=== PATIENT | female | born 1945 | race Asian ===

== ENCOUNTER → 2016-09-29 | Outpatient (CLI) | payer MEDICARE, MEDICAID ==
[~2016-09-29] MED LIST: ACET325 PO; ALBU1AER INH; ATOR80TA PO; DABI150 PO; FURO20TA PO; GLUCTAB PO; LISI5 PO; METO50TA OR; MOBI15TA PO; PERC7.5T13 PO; POTA10IN2 PO; XARE20TA PO; ZOFR4TAB3 SL
[2016-09-29 08:59] LABS: HEMATOCRIT 40.1 % (35.0-46.0); MEAN CELL VOLUME 82.5 FL (80.0-100.0); MEAN CORPUSCULAR HEMOGLOBIN 26.3 PG (27.0-34.0); MEAN CORPUSCULAR HGB CONC 31.9 % (32.0-36.0); PLATELET COUNT 180 TH/MM3 (150-450); RED BLOOD COUNT 4.86 MIL/MM3 (4.00-5.30); RED CELL DISTRIBUTION WIDTH 14.7 % (11.6-17.2); REVIEW FLAG FINAL; WHITE BLOOD COUNT 4.7 TH/MM3 (4.0-11.0)
[2016-09-29 09:31] LABS: ALKALINE PHOSPHATASE 77 U/L (45-117); ALT (GPT) 60 U/L (10-53); ANION GAP 7 MEQ/L (5-15); AST (GOT) 41 U/L (15-37); BICARBONATE 30.1 MEQ/L (21.0-32.0); BLOOD UREA NITROGEN 12 MG/DL (7-18); CHLORIDE 106 MEQ/L (98-107); GLOMERULAR FILTRATION RATE 58 ML/MIN (>89); GLUCOSE,FASTING 101 MG/DL (74-99); POTASSIUM 4.3 MEQ/L (3.5-5.1); SODIUM (NA) 143 MEQ/L (136-145); TOTAL BILIRUBIN ADULT 0.8 MG/DL (0.2-1.0)
== END ==
LOC: CLAB 08:14
DX: R05 Cough (principal); R06.09 Other forms of dyspnea; R06.2 Wheezing; I50.9 Heart failure, unspecified
CPT/HCPCS: 36415; 80053; 85027

== ENCOUNTER 2016-10-05 03:26 | Emergency (ER) | payer MEDICARE, MEDICAID ==
[~2016-10-05] VITALS: Ht 170.2 cm; Wt 110.0 kg
[~2016-10-05 03:26] MED LIST changes: -MOBI15TA PO; -PERC7.5T13 PO; -XARE20TA PO; -ZOFR4TAB3 SL
[2016-10-05] MEDS ORDERED: SODIUM CHLORIDE 0.9% FLUSH 5 ML FLUSH IVF PRN (03:45)
[2016-10-05] MEDS ORDERED: HYDROmorphone HCL PF 1 MG/ML VIAL IVS ONE (03:45)
[2016-10-05] MEDS ORDERED: ONDANSETRON HCL 4 MG/2 ML VIAL IVP ONE (03:45)
[2016-10-05 03:46] VITALS: BP 162/77; PULSE 80; RESP 20; TEMP 97.6; O2SAT 98
--- NOTE | 2016-10-05 03:52 | PD ---
HPI Chief Complaint: Musculoskeletal Complaint Time Seen by Provider: 03:43 Travel History International Travel<30 days: No Contact w/Intl Traveler<30days: No History of Present Illness HPI The patient is 71 years old. She arrives by EMS. About 10 hours prior to ER arrival she dropped a extra-large heavy coffee mug onto her left knee. Since then there has been increasing left knee pain constant and severe. Any palpation worsens the pain. The daughter called EMS and brought the patient here. The patient speaks Mandarin Mauritian only and translation was provided by the daughter. Translation services were offered however patient declined. She takes Pradaxa for atrial fibrillation. PFSH Past Medical History Hx Anticoagulant Therapy: Yes Arthritis: No Asthma: No Atrial Fibrillation: Yes Autoimmune Disease: No Blood Disorders: No Anxiety: No Depression: No Heart Rhythm Problems: Yes (A FIB) Cancer: No Cardiovascular Problems: Yes High Cholesterol: No Chemotherapy: No Chest Pain: Yes Congestive Heart Failure: Yes COPD: No Cerebrovascular Accident: Yes Diabetes: Yes Diminished Hearing: No Endocrine: No GERD: No Glaucoma: No Genitourinary: No Hepatitis: No Hiatal Hernia: No Hypertension: Yes Immune Disorder: No Kidney Stones: No Musculoskeletal: No Neurologic: No Psychiatric: No Reproductive: No Respiratory: Yes Immunizations Current: Yes Migraines: No Myocardial Infarction: No Radiation Therapy: No Renal Failure: No Seizures: No Sickle Cell Disease: No Sleep Apnea: No Thyroid Disease: No Ulcer: No Menopausal: Yes Past Surgical History Abdominal Surgery: No AICD: No Appendectomy: No Arteriovenous Shunt: No Cardiac Surgery: Yes (Mitral Valve) Cholecystectomy: No Ear Surgery: No Endocrine Surgery: No Eye Surgery: Yes (CATRACT ) Genitourinary Surgery: No Gynecologic Surgery: No Hysterectomy: No Insulin Pump: No Joint Replacement: No Oral Surgery: No Pacemaker: No Thoracic Surgery: No Valve Replacement: Yes (mvp in 09/19/2009) Other Surgery: Yes Social History Alcohol Use: No Tobacco Use: No Substance Use: No Allergies-Medications (Allergen,Severity, Reaction): Coded Allergies: No Known Allergies (Verified , 04/18/15) Reported Meds & Prescriptions Reported Meds & Active Scripts Active Tylenol (Acetaminophen) 325 Mg Tab 650 Mg PO Q8HR has at home, over the counter Reported Xarelto (Rivaroxaban) 20 Mg Tab 20 Mg PO DAILY Mobic (Meloxicam) 15 Mg Tab 15 Mg PO DAILY Proair Hfa (Albuterol Sulfate) 8.5 Gm Aero 2 Puff INH Q4H PRN * SHAKE WELL BEFORE USE * Potassium Chloride 10 Meq Cap 1 Cap PO DAILY Atorvastatin 80 mg (Atorvastatin Calcium) 80 Mg Tab 80 Mg PO DAILY Metoprolol Tartrate 50 mg (Metoprolol Tartrate) 50 Mg Tab 50 Mg OR BID Prinivil 5 mg (Lisinopril) 5 Mg Tab 5 Mg PO BID Glucophage XR 24 HR (Metformin HCl) 500 Mg Tab 500 Mg PO BID Review of Systems Except as stated in HPI: all other systems reviewed are Neg General / Constitutional: No: Fever Physical Exam Narrative GENERAL: 71-year-old female mild distress well-nourished well-developed SKIN: Warm and dry. HEAD: Atraumatic. Normocephalic. EYES: Pupils equal and round. No scleral icterus. No injection or drainage. ENT: No nasal bleeding or discharge. Mucous membranes pink and moist. NECK: Trachea midline. No JVD. CARDIOVASCULAR: Regular rate and rhythm. No murmur appreciated. RESPIRATORY: No accessory muscle use. Clear to auscultation. Breath sounds equal bilaterally. GASTROINTESTINAL: Abdomen soft, non-tender, nondistended. Hepatic and splenic margins not palpable. MUSCULOSKELETAL: Tenderness and swelling about the left knee. Exam somewhat limited initially due to pain. Distal pulses intact. NEUROLOGICAL: Awake and alert. No obvious cranial nerve deficits. Motor grossly within normal limits. Normal speech. PSYCHIATRIC: Appropriate mood and affect; insight and judgment normal. Data Data Last Documented VS Vital Signs Date Time Temp Pulse Resp B/P Pulse Ox O2 Delivery O2 Flow Rate FiO2 10/05/16 03:46 97.6 80 20 162/77 98 Orders Iv Access Insert/Monitor (10/05/16 03:43) Oximetry (10/05/16 03:43) Ecg Monitoring (10/05/16 03:43) Ondansetron Inj (Zofran Inj) (10/05/16 03:45) Sodium Chloride 0.9% Flush (Ns Flush) (10/05/16 03:45) Hydromorphone Pf Inj (Dilaudid Pf Inj) (10/05/16 03:45) Knee, Complete (4vws) (10/05/16 ) [facility] Medical Decision Making Medical Screen Exam Complete: Yes Emergency Medical Condition: Yes Differential Diagnosis Hemarthrosis, patella fracture, femur fracture, tibial plateau fracture Narrative Course Knee x-ray reveals no fracture, suprapatellar joint effusion is present There is no ballottement on exam and hemarthrosis at this time is considered unlikely. The patient is an excellent response to 0.5mg hydromorphone. We'll send the patient with Percocet and Zofran. An Wilder bandage has been ordered. Return precautions discussed. Follow-up with orthopedics in 2 days. Diagnosis Primary Impression: Contusion, knee Qualified Code: S80.02XA - Contusion of left knee, initial encounter Additional Impression: Effusion of left knee Referrals: Chidi Carmona Jr., MD 2 days Yonas Escobedo MD 2 days Additional Instructions: You have a choice when it comes to health care, and we are glad that you chose [facility]. Hopefully, we have met your expectations on today's visit. You are welcome to return to [facility] at any time, as we are committed to meeting the health care needs of our community. Med/Other Pt SpecificInfo: Prescription(s) given Scripts Oxycodone-Acetaminophen (Percocet)7.5-325 mg Tab1 Tab PO Q6H PRN (PAIN SCALE 6 TO 10) #15 TAB Ref 0 Prov:Serg Darnell MD 10/05/16 Disposition: 01 DISCHARGE HOME Condition: Stable Serg Darnell MD Oct 05, 2016 03:52
[2016-10-05] MEDS ORDERED: XARE20TA PO (04:08)
[2016-10-05] MEDS ORDERED: MOBI15TA PO (04:08)
--- NOTE | 2016-10-05 04:28 | RADRPT ---
EXAM DATE/TIME: 10/05/2016 03:56 [facility] COMPARISON: No previous studies available for comparison. INDICATIONS : Left knee pain post dropping heavy object on knee. MEDICAL HISTORY : Arthritis. SURGICAL HISTORY : Total knee replacement, right. ENCOUNTER: Initial ACUITY: 1 day PAIN SCORE: 8/10 LOCATION: Left knee. FINDINGS: 4 views of the left knee. Large tricompartmental osteophytes. Large joint effusion. No evidence of fr acture. Mild tricompartmental joint narrowing. CONCLUSION: Large joint effusion. Prominent osteoarthritic findings. No evidence of fracture. Billy Durán MD on October 05, 2016 at 4:25 Board Certified Radiologist. This report was verified electronically.
[2016-10-05] MEDS ORDERED: PERC7.5T13 PO (05:15)
[2016-10-05] MEDS ORDERED: ZOFR4TAB3 SL (05:17)
== END 2016-10-05 06:11 | disposition home or self-care (01) ==
LOC: NEPC 03:26
DX: S80.02XA Contusion of left knee, initial encounter (principal); M25.462 Effusion, left knee; I48.91 Unspecified atrial fibrillation; I50.9 Heart failure, unspecified; I10 Essential (primary) hypertension; Z95.2 Presence of prosthetic heart valve; Z86.73 Personal history of transient ischemic attack (TIA), and cerebral infarction without residual deficits; Z79.01 Long term (current) use of anticoagulants; W22.8XXA Striking against or struck by other objects, initial encounter; Y93.9 Activity, unspecified; Y92.9 Unspecified place or not applicable; Y99.9 Unspecified external cause status
CPT/HCPCS: 73564; 96374; 96375; 99283; J1170; J2405

== ENCOUNTER 2017-05-09 14:04 | Inpatient (IN) | payer MEDICARE, MEDICAID ==
[2017-05-09] VITALS (18 sets, daily range): BP systolic 92–144; BP diastolic 52–87; PULSE 73–130; RESP 18–20; TEMP 97.3–97.9; O2SAT 94–100
[~2017-05-09] VITALS: Ht 152.4 cm; Wt 79.6 kg
[~2017-05-09 14:04] MED LIST changes: -DABI150 PO; -FURO20TA PO; +MOBI15TA PO; +PERC7.5T13 PO; +XARE20TA PO; +ZOFR4TAB3 SL
[2017-05-09] MEDS ORDERED: METO50TA PO (14:28)
[2017-05-09] MEDS ORDERED: XARE20TA PO (14:28)
[2017-05-09] MEDS ORDERED: ALBUAER3 INH (14:28)
[2017-05-09] MEDS ORDERED: LISI-519 PO (14:28)
[2017-05-09] MEDS ORDERED: METF500T PO (14:28)
[2017-05-09] MEDS ORDERED: LIPI40TA PO (14:28)
[2017-05-09] MEDS ORDERED: SODIUM CHLORIDE 0.9% FLUSH 10 ML FLUSH IVF PRN (14:30)
[2017-05-09] MEDS ORDERED: methylPREDNISolone SOD SUCC 125 MG/2 ML VIAL IV PUSH ONE (14:30)
[2017-05-09] MEDS: RESP: ALBUTEROL 2.5 MG/IPRATROPIUM 0.5 MG NEB (SCH) INH ×2 (14:33→19:28)
--- NOTE | 2017-05-09 14:42 | PD ---
HPI Chief Complaint: Respiratory Distress Time Seen by Provider: 14:30 Travel History International Travel<30 days: No Contact w/Intl Traveler<30days: No Traveled to known affect area: No History of Present Illness HPI 71 YO F with PMH of CHF, A. fib, CVA, DM, HTN, HLD, bovine MVR presents to the ED for evaluation of worsening SOB and productive cough for one week. The patient does not speak Bhutanese. Her daughter is at bedside to provide the history. She denies F/C, N/V, abdominal pain, changes in bowel habits, dysuria. She states cough is productive of green sputum. She states that the patient has taken off her "water pill" by her field trainer "because she was doing so well. " She has never smoked, does not use oxygen at home. Followed by Dr. Escobedo, PCP and Dr. Dodd, Pulmonology, Dr. Diaz, Cardiology. PFSH Past Medical History Hx Anticoagulant Therapy: Yes Arthritis: No Asthma: No Atrial Fibrillation: Yes Autoimmune Disease: No Blood Disorders: No Anxiety: No Depression: No Heart Rhythm Problems: Yes (A FIB) Cancer: No Cardiovascular Problems: Yes High Cholesterol: Yes Chemotherapy: No Chest Pain: Yes Congestive Heart Failure: Yes COPD: No Cerebrovascular Accident: Yes Diabetes: Yes Patient Takes Glucophage: Yes Diminished Hearing: No Endocrine: No Gastrointestinal Disorders: No GERD: No Glaucoma: No Genitourinary: No Hepatitis: No Hiatal Hernia: No Hypertension: Yes Immune Disorder: No Kidney Stones: No Musculoskeletal: No Neurologic: No Psychiatric: No Reproductive: No Respiratory: Yes Immunizations Current: Yes Migraines: No Myocardial Infarction: No Radiation Therapy: No Renal Failure: No Seizures: No Sickle Cell Disease: No Sleep Apnea: No Thyroid Disease: No Ulcer: No Menopausal: Yes Past Surgical History Abdominal Surgery: No AICD: No Appendectomy: No Arteriovenous Shunt: No Cardiac Surgery: Yes (Mitral Valve) Cholecystectomy: No Ear Surgery: No Endocrine Surgery: No Eye Surgery: Yes (CATRACT ) Genitourinary Surgery: No Gynecologic Surgery: No Hysterectomy: No Insulin Pump: No Joint Replacement: No Neurologic Surgery: No Oral Surgery: No Pacemaker: No Thoracic Surgery: No Valve Replacement: Yes (mvp in 09/19/2009) Other Surgery: Yes Social History Alcohol Use: No Tobacco Use: No Substance Use: No Allergies-Medications (Allergen,Severity, Reaction): Coded Allergies: No Known Allergies (Verified , 05/09/17) Reported Meds & Prescriptions Reported Meds & Active Scripts Active Reported Proair Hfa 8.5 GM Inh (Albuterol Sulfate) 90 Mcg/Act Aer 1 Puff INH Q4H PRN 108 mcg/actuation Metoprolol Tartrate 50 Mg Tab 50 Mg PO BID Metformin (Metformin HCl) 500 Mg Tab 500 Mg PO BIDPC Xarelto (Rivaroxaban) 20 Mg Tab 20 Mg PO DAILY Lisinopril 5 Mg Tab 5 Mg PO BID Lipitor (Atorvastatin Calcium) 40 Mg Tab 40 Mg PO HS Review of Systems Except as stated in HPI: all other systems reviewed are Neg Physical Exam Narrative GENERAL: Obese, ill-appearing female with positive accessory muscle use. SKIN: Focused skin assessment warm/dry. HEAD: Normocephalic. EYES: No scleral icterus. No injection or drainage. NECK: Supple, trachea midline. No JVD or lymphadenopathy. CARDIOVASCULAR: Irregularly irregular rate and rhythm without murmurs, gallops, or rubs. RESPIRATORY: Breath sounds tight, mild end expiratory wheezing bilaterally. ++ accessory muscle use. Wet sounding cough. GASTROINTESTINAL: Abdomen protuberant, soft, non-tender, nondistended. Active bowel sounds. MUSCULOSKELETAL: No cyanosis, or edema. BACK: Nontender without obvious deformity. No CVA tenderness. Data Data Last Documented VS Vital Signs Date Time Temp Pulse Resp B/P (MAP) Pulse Ox O2 Delivery O2 Flow Rate FiO2 05/09/17 17:51 116 129/68 05/09/17 16:53 20 94 05/09/17 16:37 97.9 05/09/17 15:58 Nasal Cannula 2.00 Orders Orders Complete Blood Count With Diff (05/09/17 14:19) Comprehensive Metabolic Panel (05/09/17 14:19) B-Type Natriuretic Peptide (05/09/17 14:19) Act Partial Throm Time (Ptt) (05/09/17 14:19) Prothrombin Time / Inr (Pt) (05/09/17 14:19) Magnesium (Mg) (05/09/17 14:19) Ckmb (Isoenzyme) Profile (05/09/17 14:19) Troponin I (05/09/17 14:19) Urinalysis - C+S If Indicated (05/09/17 14:19) Influenzae A/B Antigen (05/09/17 14:19) Blood Culture (05/09/17 14:19) Iv Access Insert/Monitor (05/09/17 14:19) Electrocardiogram (05/09/17 14:19) Ecg Monitoring (05/09/17 14:19) Oximetry (05/09/17 14:19) Oxygen Administration (05/09/17 14:19) Chest, Single Ap (05/09/17 14:19) Sodium Chloride 0.9% Flush (Ns Flush) (05/09/17 14:30) Methylprednisolone So Succ Inj (Solumedr (05/09/17 14:30) Albuterol-Ipratropium Neb (Duoneb Neb) (05/09/17 14:30) CKMB (05/09/17 14:30) CKMB% (05/09/17 14:30) Arterial Blood Gas (Abg) (05/09/17 ) Thyroid Stimulating Hormone (05/09/17 15:32) Diltiazem Inj (Cardizem Inj) (05/09/17 15:45) Diltiazem (Cardizem) (05/09/17 15:45) Levofloxacin (Levaquin) (05/09/17 16:30) Furosemide Inj (Lasix Inj) (05/09/17 16:30) Diltiazem Inj (Cardizem Inj) (05/09/17 17:15) Admit Order (Ed Use Only) (05/09/17 18:18) Labs Laboratory Tests Test 05/09/17 14:30 05/09/17 15:00 05/09/17 16:00 White Blood Count 8.5 TH/MM3 Red Blood Count 4.24 MIL/MM3 Hemoglobin 11.6 GM/DL Hematocrit 35.9 % Mean Corpuscular Volume 84.6 FL Mean Corpuscular Hemoglobin 27.4 PG Mean Corpuscular Hemoglobin Concent 32.4 % Red Cell Distribution Width 14.6 % Platelet Count 279 TH/MM3 Mean Platelet Volume 7.2 FL Neutrophils (%) (Auto) 73.9 % Lymphocytes (%) (Auto) 14.8 % Monocytes (%) (Auto) 10.1 % Eosinophils (%) (Auto) 0.7 % Basophils (%) (Auto) 0.5 % Neutrophils # (Auto) 6.3 TH/MM3 Lymphocytes # (Auto) 1.3 TH/MM3 Monocytes # (Auto) 0.9 TH/MM3 Eosinophils # (Auto) 0.1 TH/MM3 Basophils # (Auto) 0.0 TH/MM3 CBC Comment DIFF FINAL Differential Comment Prothrombin Time 11.1 SEC Prothromb Time International Ratio 1.0 RATIO Activated Partial Thromboplast Time 34.3 SEC Blood Urea Nitrogen 10 MG/DL Creatinine 0.97 MG/DL Random Glucose 145 MG/DL Total Protein 7.0 GM/DL Albumin 2.9 GM/DL Calcium Level 8.3 MG/DL Magnesium Level 2.1 MG/DL Alkaline Phosphatase 112 U/L Aspartate Amino Transf (AST/SGOT) 84 U/L Alanine Aminotransferase (ALT/SGPT) 67 U/L Total Bilirubin 0.7 MG/DL Sodium Level 135 MEQ/L Potassium Level 3.6 MEQ/L Chloride Level 100 MEQ/L Carbon Dioxide Level 26.4 MEQ/L Anion Gap 9 MEQ/L Estimat Glomerular Filtration Rate 57 ML/MIN Total Creatine Kinase 581 U/L Creatine Kinase MB 3.6 NG/ML Creatine Kinase MB % 0.6 % Troponin I LESS THAN 0.02 NG/ML B-Type Natriuretic Peptide 345 PG/ML Thyroid Stimulating Hormone 3rd Gen 0.941 uIU/ML Urine Color LIGHT-YELLOW Urine Turbidity CLEAR Urine pH 6.5 Urine Specific [place] 1.003 Urine Protein TRACE mg/dL Urine Glucose (UA) NEG mg/dL Urine Ketones NEG mg/dL Urine Occult Blood TRACE Urine Nitrite NEG Urine Bilirubin NEG Urine Urobilinogen LESS THAN 2.0 MG/DL Urine Leukocyte Esterase SMALL Urine RBC 1 /hpf Urine WBC 3 /hpf Urine Squamous Epithelial Cells 1 /hpf Urine Transitional Epithelial Cells 1 /hpf Urine Bacteria RARE /hpf Microscopic Urinalysis Comment CULT NOT INDICATED Blood Gas Puncture Site RT RADIAL Blood Gas Patient Temperature 98.6 Blood Gas HCO3 23 mmol/L Blood Gas Base Excess -0.1 mmol/L Blood Gas Oxygen Saturation 94 % Arterial Blood pH 7.46 Arterial Blood Partial Pressure CO2 33 mmHg Arterial Blood Partial Pressure O2 78 mmHG Arterial Blood Oxygen Content 15.0 Vol % Arterial Blood Carboxyhemoglobin 1.3 % Arterial Blood Methemoglobin 0.5 % Blood Gas Hemoglobin 11.3 G/DL Oxygen Delivery Device NASAL CANNULA Blood Gas Liter Flow 2 L/M MDM Medical Decision Making Medical Screen Exam Complete: Yes Emergency Medical Condition: Yes Differential Diagnosis Pneumonia versus CHF exacerbation versus influenza versus ACS versus other Narrative Course 71 YO F with PMH of CHF, A. fib, CVA, DM, HTN, HLD, bovine MVR presents to the ED for evaluation of worsening SOB and productive cough for one week. She states cough is productive of green sputum. Endorses accompanying yellow rhinorrhea. She states that the patient has taken off her "water pill" by her field trainer "because she was doing so well." She has never smoked, does not use oxygen at home. She did not get the flu shot this year. Followed by Dr. Escobedo, PCP and Dr. Dodd, Pulmonology, Dr. Diaz, Cardiology. On presentation rate heart rate 115, respiratory rate 18, 99% O2 saturation on 2L NC, BP 136/87. Physical exam reveals an ill-appearing female with some extra work of breathing. The lung sounds are tight and there is end expiratory wheezing bilaterally. Additionally, she has a wet sounding cough. No lower extremity edema. IV was established. Patient was administered Solu-Medrol and DuoNeb nebs 2. EKG: rate 117, A. fib with RVR. PVCs. No acute ST changes. Reviewed by Dr. Morris. Cardiac enzymes: Negative 1. CXR: Bibasilar trace pleural effusions with atelectasis per radiology read. CBC: WBC 8.5. Neutrophil predominant. Hemoglobin 11.6. Coags: INR 1.0. CMP: BUN 10, creatinine 0.97. Calcium 8.3. BNP 345. UA no culture indicated. INfluenza swab: negative Patient was administered 40 mg of Lasix IV, 20 mg Cardizem IV and 90 mg Cardizem by mouth. Given her presentation, will treat for CAP. Patient was administered 750 mg Levaquin by mouth. Patient was trialed without the O2. Saturations 94% ORA. Rate continues in the 120's despite Cardizem. I discussed the patient with Dr. Morris. She recommends initiating Cardizem drip, admission to the medicine service. I spoke to Dr. Eaton who agrees to accept the patient to the medical service. Please see medicine notes for disposition. Bernie Love May 09, 2017 14:42
[2017-05-09 14:50] LABS: AUTOMATED NEUTROPHIL # 6.3 TH/MM3 (1.8-7.7); BASOPHIL % 0.5 % (0.0-2.0); EOSINOPHIL # 0.1 TH/MM3 (0-0.4); EOSINOPHIL % 0.7 % (0.0-4.0); HEMATOCRIT 35.9 % (35.0-46.0); HEMO FLAGS DIFF FINAL; LYMPH % 14.8 % (9.0-44.0); LYMPHOCYTE # 1.3 TH/MM3 (1.0-4.8); MEAN CELL VOLUME 84.6 FL (80.0-100.0); MEAN CORPUSCULAR HEMOGLOBIN 27.4 PG (27.0-34.0); MEAN CORPUSCULAR HGB CONC 32.4 % (32.0-36.0); MONO % 10.1 % (0.0-8.0); NEUT % 73.9 % (16.0-70.0); PLATELET COUNT 279 TH/MM3 (150-450); RED BLOOD COUNT 4.24 MIL/MM3 (4.00-5.30); RED CELL DISTRIBUTION WIDTH 14.6 % (11.6-17.2); WHITE BLOOD COUNT 8.5 TH/MM3 (4.0-11.0)
--- NOTE | 2017-05-09 14:56 | RADRPT ---
EXAM DATE/TIME: 05/09/2017 14:36 [facility] COMPARISON: CT PULMONARY ANGIOGRAM, April 18, 2015, 23:13. CHEST SINGLE AP, April 18, 2015, 21:40. INDICATIONS : Shortness of breath. MEDICAL HISTORY : Arthritis. SURGICAL HISTORY : CABG. ENCOUNTER: Initial ACUITY: 3 days PAIN SCORE: 0/10 LOCATION: Bilateral chest FINDINGS: Portable AP view of the chest demonstrates normal size cardiac silhouette is patient post median ster notomy and valve replacement. There are small bibasilar pleural parenchymal opacities. No pneumothora x is visualized. Bones and soft tissues demonstrate no acute finding. CONCLUSION: 1. Underinflation with mild bibasilar opacities likely representing trace pleural effusions with asso ciated atelectasis. 2. Patient is post mitral valve replacement. Yonas Sequeira MD on May 09, 2017 at 14:52 Board Certified Radiologist. This report was verified electronically.
[2017-05-09 15:02] LABS: APTT (PATIENT) 34.3 SEC (24.3-30.1); PROTHROMBIN TIME - PATIENT 11.1 SEC (9.8-11.6)
[2017-05-09 15:16] LABS: BACTERIA, URINE RARE /hpf; BLOOD, URINE TRACE (NEG); GLUCOSE,URINE NEG (NEG); KETONE, URINE NEG (NEG); NITRITE,URINE NEG (NEG); PH, URINE 6.5 (5.0-8.5); SQUAMOUS EPITHELIAL CELL URINE 1 /hpf (0-5); TRANSITIONAL EPI CELLS, URINE 1 /hpf; URINE COLOR LIGHT-YELLOW (YELLW/STRAW)
[2017-05-09 15:19] LABS: COMMENT (UR) CULT NOT INDICATED; CULTURE IF INDICATED CULT NOT INDICATED
[2017-05-09 15:19] LABS: ANION GAP 9 MEQ/L (5-15); AST (GOT) 84 U/L (15-37); BICARBONATE 26.4 MEQ/L (21.0-32.0); BLOOD UREA NITROGEN 10 MG/DL (7-18); CHLORIDE 100 MEQ/L (98-107); GLOMERULAR FILTRATION RATE 57 ML/MIN (>89); MAGNESIUM 2.1 MG/DL (1.5-2.5); POTASSIUM 3.6 MEQ/L (3.5-5.1); SODIUM (NA) 135 MEQ/L (136-145)
[2017-05-09 15:24] LABS: ALKALINE PHOSPHATASE 112 U/L (45-117); ALT (GPT) 67 U/L (10-53); CREATINE KINASE 581 U/L (26-192); TOTAL BILIRUBIN ADULT 0.7 MG/DL (0.2-1.0)
[2017-05-09 15:36] LABS: CKMB 3.6 NG/ML (0.5-3.6)
[2017-05-09] MEDS ORDERED: DILTIAZEM HCL 90 MG TAB PO ONE (15:45)
[2017-05-09] MEDS ORDERED: DILTIAZEM HCL 25 MG/5 ML VIAL IV ONE (15:45)
[2017-05-09 16:11] LABS: BLOOD GAS BASE EXCESS -0.1 mmol/L (-2-2); BLOOD GAS CARBOXYHEMOGLOBIN 1.3 % (0-4); BLOOD GAS HCO3 23 mmol/L (22-26); BLOOD GAS METHEMOGLOBIN 0.5 % (0-2); BLOOD GAS O2 HGB SATURATION 94 % (90-100); BLOOD GAS PCO2 33 mmHg (38-42); BLOOD GAS PO2 78 mmHG (61-120); BLOOD GAS TOTAL HGB 11.3 G/DL (12.0-16.0); TEMP CORR TO 98.6
[2017-05-09 16:12] LABS: CRITICAL VALUE NO; DRAW SITE RT RADIAL; LITER FLOW 2 L/M; NUMBER OF ARTERIAL PUNCTURES 1; OXYGEN DEVICE NASAL CANNULA; STAT YES; ULNAR PULSE PRESENT
[2017-05-09] MEDS ORDERED: LEVOFLOXACIN 750 MG TAB PO ONE (16:30)
[2017-05-09] MEDS ORDERED: FUROSEMIDE 40 MG/4 ML VIAL IV PUSH ONE (16:30)
[2017-05-09] MEDS ORDERED: DILTIAZEM INJ 125 MG in SODIUM CHLORIDE 0.9% INJ 100 ML IV PRN ×2 (17:15→18:45)
[2017-05-09] MEDS ORDERED: DEXTROSE 50% IN WATER 50 ML VIAL(D50) IV PUSH PRN (18:45)
[2017-05-09] MEDS ORDERED: LACTULOSE SYRUP 20 GM/30 ML CUP PO PRN (18:45)
[2017-05-09] MEDS ORDERED: SODIUM CHLORIDE 0.9% FLUSH 10 ML FLUSH IV FLUSH PRN ×3 (18:45)
[2017-05-09] MEDS ORDERED: GLUCAGON 1 MG/ML VIAL OTHER PRN (18:45)
[2017-05-09] MEDS ORDERED: SENNOSIDES 8.6 MG TAB PO PRN (18:45)
[2017-05-09] MEDS ORDERED: oxyCODONE/ACETAMINOPHEN 5 MG/325 MG TAB PO PRN (18:45)
[2017-05-09] MEDS ORDERED: NALOXONE HCL 0.4 MG/ML AMP IV PUSH PRN (18:45)
[2017-05-09] MEDS ORDERED: MAGNESIUM HYDROXIDE SUSP 30 ML CUP PO PRN (18:45)
[2017-05-09] MEDS ORDERED: PROCHLORPERAZINE 25 MG SUPP RECTAL PRN (18:45)
[2017-05-09] MEDS ORDERED: ONDANSETRON HCL 4 MG/2 ML VIAL IVP PRN (18:45)
[2017-05-09] MEDS ORDERED: oxyCODONE/ACETAMINOPHEN 10 MG/325 MG TAB PO PRN (18:45)
[2017-05-09] MEDS ORDERED: ACETAMINOPHEN 325 MG TAB PO PRN ×2 (18:45)
[2017-05-09] MEDS ORDERED: BISACODYL 10 MG SUPP RECTAL PRN (18:45)
[2017-05-09] MEDS ORDERED: MORPHINE SULFATE 4 MG/ML INJ IV PUSH PRN ×2 (18:45)
--- NOTE | 2017-05-09 18:56 | HHI.HP ---
[facility] Yonas Escobedo MD Admission Diagnosis A fib with RVR Diagnoses: (1) Diabetes mellitus Diagnosis: Secondary (2) CVA (cerebral vascular accident) Diagnosis: Secondary (3) Hypertension Diagnosis: Secondary (4) Hyperlipidemia Diagnosis: Secondary (5) COPD (chronic obstructive pulmonary disease) Diagnosis: Principal (6) Respiratory insufficiency Diagnosis: Principal (7) Atrial fibrillation Diagnosis: Principal (8) Hx of mitral valve replacement with tissue graft Diagnosis: Secondary (9) Anticoagulated Diagnosis: Principal (10) Hx of coronary artery disease Diagnosis: Principal Travel History International Travel<30 Days: No Contact w/Intl Traveler <30 Da: No Traveled to Known Affected Are: No History of Present Illness Patient is 71-year-old female. Who presented to the emergency department with a history of congestive heart failure, atrial fibrillation, cerebrovascular accident, diabetes mellitus, hypertension, hyperlipidemia, and bovine mitral valve replacement presents to emergency room for worsening shortness of breath and productive cough of at least a week. The patient does not speak any Guyanese her daughter is at bedside and speaks fluent Guyanese and is able to translate. Patient denies any fever or chills or any nausea or vomiting denies any abdominal pain or changes in her bowel habits habits denies any dysuria has had a cough that's been productive of greenish sputum had recently been taken off her water pill by her lung doctor because she was doing well. Denies any tobacco does not have oxygen at home is followed by Dr. Gregg Rivas and Dr. Diaz Patient is in A. fib with RVR will be admitted to [facility] on a Cardizem drip will be given steroids would be given antibiotics will be given breathing treatments and solo lys will consult cardiology and pulmonary. Review of Systems Constitutional: DENIES: Diaphoretic episodes, Fatigue, Fever, Weight gain, Weight loss, Chills, Dizziness Endocrine: DENIES: Abnorml menstrual pattern, Heat/cold intolerance, Polydipsia Eyes: DENIES: Blurred vision, Diplopia, Eye inflammation, Eye pain Ears, nose, mouth, throat: DENIES: Tinnitus, Hearing loss, Vertigo, Nasal discharge Respiratory: COMPLAINS OF: Cough, Sputum production, Shortness of breath, DENIES: Apneas, Snoring, Wheezing, Hemoptysis Cardiovascular: COMPLAINS OF: Palpitations, Dyspnea on Exertion, DENIES: Chest pain, Syncope, PND, Lower Extremity Edema Gastrointestinal: DENIES: Abdominal pain, Black stools, Bloody stools, Constipation Genitourinary: DENIES: Abnormal vaginal bleeding, Dysmenorrhea, Vaginal discharge Musculoskeletal: COMPLAINS OF: Joint pain, DENIES: Muscle aches, Stiffness, Joint Swelling Integumentary: DENIES: Abnormal pigmentation, Pruritus, Rash, Nail changes Hematologic/lymphatic: DENIES: Bruising, Lymphadenopathy Immunologic/allergic: DENIES: Eczema, Urticaria Neurologic: DENIES: Abnormal gait, Headache, Localized weakness, Paresthesias, Seizures, Speech Problems Psychiatric: DENIES: Anxiety, Confusion, Mood changes, Depression, Hallucinations Past Family Social History Past Medical History Continue chronic anticoagulation with XARELTO Atrial fibrillation Hyperlipidemia Cardiovascular issues History of mitral valve repair with bovine History of CVA Possible COPD Diabetes mellitus Congestive heart failure Hypertension Past Surgical History Bovine mitral valve replacement Cataract surgery bilaterally Right total knee surgery Left leg surgery Reported Medications Reported Meds & Active Scripts Active Reported Proair Hfa 8.5 GM Inh (Albuterol Sulfate) 90 Mcg/Act Aer 1 Puff INH Q4H PRN 108 mcg/actuation Metoprolol Tartrate 50 Mg Tab 50 Mg PO BID Metformin (Metformin HCl) 500 Mg Tab 500 Mg PO BIDPC Xarelto (Rivaroxaban) 20 Mg Tab 20 Mg PO DAILY Lisinopril 5 Mg Tab 5 Mg PO BID Lipitor (Atorvastatin Calcium) 40 Mg Tab 40 Mg PO HS Allergies: Coded Allergies: No Known Allergies (Verified , 05/09/17) Active Ordered Medications Current Medications Sodium Chloride (NS Flush) 2 ml UNSCH PRN IVF FLUSH AFTER USING IV ACCESS Last administered on 05/09/17 16:02; Start 05/09/17 at 14:30 Methylprednisolone Sodium Succinate (SoluMEDROL INJ) 125 mg ONCE ONCE IV PUSH Last administered on 05/09/17 15:07; Start 05/09/17 at 14:30; Stop 05/09/17 at 14:31; Status DC Albuterol/ Ipratropium (Duoneb Neb) 1 ampule Q15M INH Last administered on 14:33; Start 05/09/17 at 14:30; Stop 05/09/17 at 14:46; Status DC Diltiazem HCl (Cardizem Inj) 20 mg ONCE ONCE IV Last administered on 16:02; Start 05/09/17 at 15:45; Stop 05/09/17 at 15:46; Status DC Diltiazem HCl (Cardizem) 90 mg ONCE ONCE PO Last administered on 05/09/17 16 :02; Start 05/09/17 at 15:45; Stop 05/09/17 at 15:46; Status DC Levofloxacin (Levaquin) 750 mg ONCE ONCE PO Last administered on 05/09/17 16 :29; Start 05/09/17 at 16:30; Stop 05/09/17 at 16:31; Status DC Furosemide (Lasix Inj) 40 mg ONCE ONCE IV PUSH Last administered on 16:29; Start 05/09/17 at 16:30; Stop 05/09/17 at 16:31; Status DC Diltiazem HCl 125 mg/Sodium Chloride 125 ml @ 5 mls/hr TITRATE PRN IV Tachycardia Last administered on 05/09/17 17:51; Start 05/09/17 at 17:15 Atorvastatin Calcium (Lipitor) 40 mg HS PO ; Start 05/09/17 at 21:00; Status UNV Lisinopril (Prinivil) 5 mg BID PO ; Start 05/09/17 at 21:00; Status UNV Metoprolol Tartrate (Lopressor) 50 mg BID PO ; Start 05/09/17 at 21:00; Status UNV Rivaroxaban (Xarelto) 20 mg DAILY PO ; Start 05/09/17 at 18:45; Status UNV Dextrose (D50w (Vial) Inj) 50 ml UNSCH PRN IV PUSH HYPOGLYCEMIA-SEE COMMENTS; Start 05/09/17 at 18:45; Status UNV Glucagon (Glucagon Inj) 1 mg UNSCH PRN OTHER HYPOGLYCEMIA-SEE COMMENTS; Start 05/09/17 at 18:45; Status UNV Insulin Aspart (NovoLOG SUPPLEMENTAL SCALE) 1 ACHS SLIDING SCALE SQ ; Start at 21:00; Status UNV Family History No tobacco Social History Denies any tobacco alcohol or illicits Physical Exam Vital Signs Vital Signs Date Time Temp Pulse Resp B/P (MAP) Pulse Ox O2 Delivery O2 Flow Rate FiO2 05/09/17 18:40 116 94/52 05/09/17 18:38 119 94/52 (66) 05/09/17 18:27 119 114/61 (78) 05/09/17 18:25 116 114/61 05/09/17 17:51 116 129/68 05/09/17 16:53 122 20 144/79 (100) 94 05/09/17 16:37 97.9 05/09/17 16:15 110 111/77 (88) 05/09/17 15:58 130 18 128/68 (88) 100 Nasal Cannula 2.00 05/09/17 14:35 100 Nasal Cannula 2.00 05/09/17 14:29 119 18 136/87 (103) 97 Nasal Cannula 2.00 05/09/17 14:23 98 Nasal Cannula 2.00 05/09/17 14:23 18 98 Nasal Cannula 2.00 05/09/17 14:21 115 99 Nasal Cannula 2.00 Physical Exam GENERAL: This is a well-nourished, well-developed patient, in no apparent distress. SKIN: No rashes, ecchymoses or lesions. Cool and dry. HEAD: Atraumatic. Normocephalic. No temporal or scalp tenderness. EYES: Pupils equal round and reactive. Extraocular motions intact. No scleral icterus. No injection or drainage. ENT: Nose without bleeding, purulent drainage or septal hematoma. Throat without erythema, tonsillar hypertrophy or exudate. Uvula midline. Airway patent. Tongue is midline NECK: Trachea midline. No JVD or lymphadenopathy. Supple, nontender, no meningeal signs. CARDIOVASCULAR: IRRegular rate and rhythm without murmurs, gallops, or rubs. S1 and S2 no S3 or S4 RESPIRATORY: Decreased breath sounds bilaterally. Breath sounds equal bilaterally. No wheezes, rales, or rhonchi. GASTROINTESTINAL: Abdomen soft, non-tender, nondistended. No hepato-splenomegaly , or palpable masses. No guarding. MUSCULOSKELETAL: Extremities without clubbing, cyanosis, or edema. No joint tenderness, effusion, or edema noted. No calf tenderness. Negative Homans sign bilaterally. Right knee old surgical scar left leg surgical scar NEUROLOGICAL: Awake and alert. Cranial nerves II through XII intact. Motor and sensory grossly within normal limits. Five out of 5 muscle strength in all muscle groups. Normal speech. Insight and judgment appears to be good per communication with her daughter mood and behavior appears appropriate Laboratory Laboratory Tests Test 05/09/17 14:30 05/09/17 15:00 05/09/17 16:00 White Blood Count 8.5 Red Blood Count 4.24 Hemoglobin 11.6 Hematocrit 35.9 Mean Corpuscular Volume 84.6 Mean Corpuscular Hemoglobin 27.4 Mean Corpuscular Hemoglobin Concent 32.4 Red Cell Distribution Width 14.6 Platelet Count 279 Mean Platelet Volume 7.2 Neutrophils (%) (Auto) 73.9 Lymphocytes (%) (Auto) 14.8 Monocytes (%) (Auto) 10.1 Eosinophils (%) (Auto) 0.7 Basophils (%) (Auto) 0.5 Neutrophils # (Auto) 6.3 Lymphocytes # (Auto) 1.3 Monocytes # (Auto) 0.9 Eosinophils # (Auto) 0.1 Basophils # (Auto) 0.0 CBC Comment DIFF FINAL Differential Comment Prothrombin Time 11.1 Prothromb Time International Ratio 1.0 Activated Partial Thromboplast Time 34.3 Blood Urea Nitrogen 10 Creatinine 0.97 Random Glucose 145 Total Protein 7.0 Albumin 2.9 Calcium Level 8.3 Magnesium Level 2.1 Alkaline Phosphatase 112 Aspartate Amino Transf (AST/SGOT) 84 Alanine Aminotransferase (ALT/SGPT) 67 Total Bilirubin 0.7 Sodium Level 135 Potassium Level 3.6 Chloride Level 100 Carbon Dioxide Level 26.4 Anion Gap 9 Estimat Glomerular Filtration Rate 57 Total Creatine Kinase 581 Creatine Kinase MB 3.6 Creatine Kinase MB % 0.6 Troponin I LESS THAN 0.02 B-Type Natriuretic Peptide 345 Thyroid Stimulating Hormone 3rd Gen 0.941 Urine Color LIGHT-YELLOW Urine Turbidity CLEAR Urine pH 6.5 Urine Specific Edgard 1.003 Urine Protein TRACE Urine Glucose (UA) NEG Urine Ketones NEG Urine Occult Blood TRACE Urine Nitrite NEG Urine Bilirubin NEG Urine Urobilinogen LESS THAN 2.0 Urine Leukocyte Esterase SMALL Urine RBC 1 Urine WBC 3 Urine Squamous Epithelial Cells 1 Urine Transitional Epithelial Cells 1 Urine Bacteria RARE Microscopic Urinalysis Comment CULT NOT INDICATED Blood Gas Puncture Site RT RADIAL Blood Gas Patient Temperature 98.6 Blood Gas HCO3 23 Blood Gas Base Excess -0.1 Blood Gas Oxygen Saturation 94 Arterial Blood pH 7.46 Arterial Blood Partial Pressure CO2 33 Arterial Blood Partial Pressure O2 78 Arterial Blood Oxygen Content 15.0 Arterial Blood Carboxyhemoglobin 1.3 Arterial Blood Methemoglobin 0.5 Blood Gas Hemoglobin 11.3 Oxygen Delivery Device NASAL CANNULA Blood Gas Liter Flow 2 Date/Time Source Procedure Growth Status 05/09/17 14:35 Blood Line Aerobic Blood Culture Pending Received 05/09/17 14:35 Blood Line Anaerobic Blood Culture Pending Received 05/09/17 15:00 Nasal Washing Influenza Types A,B Antigen (ADRIANNA) - Final NEGATIVE FOR FLU A AND B ANTIGEN.... Complete Result Diagram: 05/09/17 1430 05/09/17 1430 Imaging Last Impressions Chest X-Ray 05/09/17 1419 Signed Impressions: Service Date/Time: Tuesday, May 09, 2017 14:36 - CONCLUSION: 1. Underinflation with mild bibasilar opacities likely representing trace pleural effusions with associated atelectasis. 2. Patient is post mitral valve replacement. Yonas Sequeira MD Capmiguel VTE Risk Assessment Caprini VTE Risk Assessment: Mod/High Risk (score >= 2) Caprini Risk Assessment Model Point Value = 1 Point Value = 2 Point Value = 3 Point Value = 5 Age 41-60 Minor surgery BMI > 25 kg/m2 Swollen legs Varicose veins or History of unexplained or recurrent spontaneous Oral contraceptives or hormone replacement Sepsis (< 1 month) Serious lung disease, including pneumonia (< 1 month) Abnormal pulmonary function Acute myocardial infarction Congestive heart failure (< 1 month) History of inflammatory bowel disease Medical patient at bed rest Age 61-74 Arthroscopic surgery Major open surgery (> 45 min) Laparoscopic surgery (> 45 min) Malignancy Confined to bed (> 72 hours) Immobilizing plaster cast Central venous access Age >= 75 History of VTE Family history of VTE Factor V Leiden Prothrombin [id number] Lupus anticoagulant Anticardiolipin antibodies Elevated serum homocysteine Heparin-induced thrombocytopenia Other congenital or acquired thrombophilia Stroke (< 1 month) Elective arthroplasty Hip, pelvis, or leg fracture Acute spinal cord injury (< 1 month) Prophylaxis Regimen Total Risk Factor Score Risk Level Prophylaxis Regimen 0-1 Low Early ambulation 2 Moderate Order ONE of the following: *Sequential Compression Device (SCD) *Heparin 5000 units SQ BID 3-4 Higher Order ONE of the following medications: *Heparin 5000 units SQ TID *Enoxaparin/Lovenox 40 mg SQ daily (WT < 150 kg, CrCl > 30 mL/min) *Enoxaparin/Lovenox 30 mg SQ daily (WT < 150 kg, CrCl > 10-29 mL/min) *Enoxaparin/Lovenox 30 mg SQ BID (WT < 150 kg, CrCl > 30 mL/min) AND/OR *Sequential Compression Device (SCD) 5 or more Highest Order ONE of the following medications: *Heparin 5000 units SQ TID (Preferred with Epidurals) *Enoxaparin/Lovenox 40 mg SQ daily (WT < 150 kg, CrCl > 30 mL/min) *Enoxaparin/Lovenox 30 mg SQ daily (WT < 150 kg, CrCl > 10-29 mL/min) *Enoxaparin/Lovenox 30 mg SQ BID (WT < 150 kg, CrCl > 30 mL/min) AND *Sequential Compression Device (SCD) Assessment and Plan Problem List: (1) Hx of mitral valve replacement with tissue graft ICD Code: Z95.4 - Hx of mitral valve replacement with tissue graft Status: Acute (2) Hx of coronary artery disease ICD Code: Z86.79 - Hx of coronary artery disease Status: Acute (3) Anticoagulated ICD Code: Z79.01 - Anticoagulated Status: Acute (4) CVA (cerebral vascular accident) ICD Code: I63.9 - Cerebral infarction, unspecified (5) Hypertension ICD Code: I10 - Essential (primary) hypertension (6) Respiratory insufficiency ICD Code: R06.89 - Other abnormalities of breathing (7) Hyperlipidemia ICD Code: E78.5 - Hyperlipidemia, unspecified (8) Diabetes mellitus ICD Code: E11.9 - Type 2 diabetes mellitus without complications (9) Atrial fibrillation ICD Code: I48.91 - Unspecified atrial fibrillation (10) COPD (chronic obstructive pulmonary disease) ICD Code: J44.9 - Chronic obstructive pulmonary disease, unspecified (11) History of chronic atrial fibrillation ICD Code: I48.2 - History of chronic atrial fibrillation Status: Acute Assessment and Plan Atrial fibrillation with rapid ventricular response continue on Cardizem drip continue on home medications continue on Xarelto Consult cardiology COPD possible exacerbation versus bronchitis will continue on DuoNeb's continue on Levaquin continue on Mucinex continue on incentive spirometry continue on Solu-Medrol Diabetes mellitus Accu-Cheks before meals and at bedtime with medium dose sliding scale due to steroids Congestive heart failure mild continue on Lasix 20 mg IV daily Chronic anticoagulation on Xarelto History of bovine mitral valve repair stable an echo History of CVA we'll ask physical therapy and occupational therapy to eval and treat Hyperlipidemia continue on statin Hypertension continue on home medications DVT prophylaxis with Xarelto GI prophylaxis with Protonix For any other information please see the chart Code Status Full code Discussed Condition With Discussed with patient and RN and her daughter and emergency room PA Physician Certification 2 Midnight Certification Type: Admission for Inpatient Services Order for Inpatient Services The services are ordered in accordance with Medicare regulations or non- Medicare payer requirements, as applicable. In the case of services not specified as inpatient-only, they are appropriately provided as inpatient services in accordance with the 2-midnight benchmark. Estimated LOS (days): 3 3 days is the estimated time the patient will need to remain in the hospital, assuming treatment plan goals are met and no additional complications. Post-Hospital Plan: Not yet determined Ck Eaton DO May 09, 2017 18:56
[2017-05-09] MEDS: RIVAROXABAN 20 MG TAB PO SCH (19:34)
[2017-05-09] MEDS: SODIUM CHLORIDE 0.9% FLUSH 10 ML FLUSH IV FLUSH SCH (21:00)
[2017-05-09] MEDS: LISINOPRIL 5 MG TAB PO SCH (21:00)
[2017-05-09] MEDS ORDERED: SODIUM CHLORIDE 0.9% FLUSH 10 ML FLUSH IV FLUSH SCH ×2 (21:00)
[2017-05-09] MEDS: ATORVASTATIN 40 MG TAB PO SCH (21:21)
[2017-05-09] MEDS: PANTOPRAZOLE SOD 40 MG DELAYED RELEASE TAB PO SCH (21:21)
[2017-05-09] MEDS: DOCUSATE SODIUM 50 MG/SENNA 8.6 MG TAB PO SCH (21:21)
[2017-05-09] MEDS: METOPROLOL TARTRATE 50 MG TAB PO SCH (21:21)
[2017-05-09] MEDS: methylPREDNISolone SOD SUCC 125 MG/2 ML VIAL IV PUSH SCH (21:22)
[2017-05-09] MEDS: guaiFENesin E.R. 600 MG TAB PO SCH (21:22)
[2017-05-09] MEDS: BUDESONIDE-FORMOTEROL 160/4.5 MCG INHALER INH SCH (21:49)
[2017-05-09 22:16] LABS: CREATINE KINASE 478 U/L (26-192)
[2017-05-10] VITALS (26 sets, daily range): BP systolic 105–147; BP diastolic 63–76; PULSE 68–122; RESP 18–20; TEMP 97–97.8; O2SAT 92–98
[2017-05-10] MEDS: INSULIN ASPART SUPPLEMENTAL SCALE SQ SCH ×5 (00:09→21:00)
[2017-05-10] MEDS: RESP: ALBUTEROL 2.5 MG/IPRATROPIUM 0.5 MG NEB (SCH) INH ×7 (02:01→23:10)
[2017-05-10] MEDS: methylPREDNISolone SOD SUCC 125 MG/2 ML VIAL IV PUSH SCH ×4 (03:29→21:43)
[2017-05-10 03:44] LABS: BASOPHIL % 0.2 % (0.0-2.0); HEMATOCRIT 33.9 % (35.0-46.0); HEMO FLAGS DIFF FINAL; LYMPH % 5.8 % (9.0-44.0); LYMPHOCYTE # 0.6 TH/MM3 (1.0-4.8); MEAN CELL VOLUME 83.4 FL (80.0-100.0); MEAN CORPUSCULAR HEMOGLOBIN 26.8 PG (27.0-34.0); MEAN CORPUSCULAR HGB CONC 32.2 % (32.0-36.0); PLATELET COUNT 293 TH/MM3 (150-450); RED BLOOD COUNT 4.07 MIL/MM3 (4.00-5.30); RED CELL DISTRIBUTION WIDTH 14.7 % (11.6-17.2)
[2017-05-10 04:02] LABS: ALT (GPT) 58 U/L (10-53); ANION GAP 11 MEQ/L (5-15); AST (GOT) 52 U/L (15-37); BICARBONATE 26.6 MEQ/L (21.0-32.0); BLOOD UREA NITROGEN 15 MG/DL (7-18); CHLORIDE 100 MEQ/L (98-107); GLOMERULAR FILTRATION RATE 45 ML/MIN (>89); MAGNESIUM 2.2 MG/DL (1.5-2.5); POTASSIUM 3.3 MEQ/L (3.5-5.1); SODIUM (NA) 138 MEQ/L (136-145)
[2017-05-10 04:10] LABS: ALKALINE PHOSPHATASE 102 U/L (45-117); CREATINE KINASE 411 U/L (26-192); FREE T4 1.65 NG/DL (0.76-1.46); TOTAL BILIRUBIN ADULT 0.9 MG/DL (0.2-1.0)
[2017-05-10 04:23] LABS: CKMB 3.4 NG/ML (0.5-3.6)
[2017-05-10] MEDS: DOCUSATE SODIUM 50 MG/SENNA 8.6 MG TAB PO SCH ×2 (08:27→21:00)
[2017-05-10] MEDS: FUROSEMIDE 20 MG/2 ML VIAL IV PUSH SCH ×2 (08:27→08:29)
[2017-05-10] MEDS: PANTOPRAZOLE SOD 40 MG DELAYED RELEASE TAB PO SCH ×2 (08:27→21:43)
[2017-05-10] MEDS: guaiFENesin E.R. 600 MG TAB PO SCH ×2 (08:27→21:43)
[2017-05-10] MEDS: SODIUM CHLORIDE 0.9% FLUSH 10 ML FLUSH IV FLUSH SCH ×2 (08:28→21:43)
[2017-05-10] MEDS: LISINOPRIL 5 MG TAB PO SCH ×2 (08:28→21:41)
[2017-05-10] MEDS: RIVAROXABAN 20 MG TAB PO SCH (08:28)
[2017-05-10] MEDS: METOPROLOL TARTRATE 50 MG TAB PO SCH ×2 (08:28→21:41)
[2017-05-10] MEDS: BUDESONIDE-FORMOTEROL 160/4.5 MCG INHALER INH SCH ×2 (08:29→21:41)
[2017-05-10] MEDS ORDERED: POTASSIUM CHLORIDE 10 MEQ CONTROLLED RELEASE TAB PO ONE (10:00)
[2017-05-10] MEDS ORDERED: POTASSIUM CHLORIDE 20 MEQ CONTROLLED RELEASE TAB PO ONE ×2 (10:45→13:00)
[2017-05-10] MEDS: POTASSIUM CHLORIDE 20 MEQ CONTROLLED RELEASE TAB PO SCH ×2 (10:59→21:44)
[2017-05-10] MEDS ORDERED: DILTIAZEM HCL 60 MG TAB PO SCH (11:00)
--- NOTE | 2017-05-10 11:06 | MB ---
cc: ANDREE WEBB M.D. DATE OF CONSULTATION: 05/10/2017 REASON FOR CONSULTATION Evaluation of atrial fibrillation, increased rate. HISTORY OF PRESENT ILLNESS Sapphire Adhikari is a 71-year-old female followed by Dr. Diaz, who came in with a diagnosis of pneumonia and noted to be tachycardiac and has been put on a Cardizem drip. She apparently has had green sputum and worsening shortness of breath prior to admission. She has never smoked, does not use oxygen at home. The history is obtained from the chart. The patient's daughter is not here and we are working on getting a [employer] quality assurance/r&d lab technician currently. She has a past history of a bovine mitral valve replacement cardiomyopathy, coronary disease, aortic regurgitation, ischemic cardiomyopathy. She was seen by Dr. Diaz on March 21. She appears to be on a statin, OMAR inhibitor and beta diana. She is on IV Cardizem now. She also has been on Xarelto chronically. PAST MEDICAL HISTORY 1. Heart problems. 2. Diabetes. 3. Hyperlipidemia. 4. Obesity. PAST SURGICAL HISTORY 1. Right knee replacement. 2. Bovine mitral valve replacement. 3. Cataract surgery. MEDICATIONS Medications are charted. ALLERGIES None known. FAMILY HISTORY Negative for heart disease. SOCIAL HISTORY Never smoked. . Retired. REVIEW OF SYSTEMS Not obtainable. PHYSICAL EXAMINATION GENERAL: A pleasant well-developed female in no acute distress. VITAL SIGNS: Charted. HEENT: Unremarkable. NECK: No JVD. CHEST: Clear to auscultation. CARDIAC: S1, S2, irregular rate and rhythm. I do not hear murmurs or gallops. ABDOMEN: Soft, nontender. EXTREMITIES: No clubbing, cyanosis or edema. LABORATORY Her labs are charted. Notable for a low potassium at 3.3, which was just repleted. Mildly elevated AST and ALT. Troponins are negative x2. TSH is normal. Hematocrit 33.9, white count 11,000. IMAGING Chest x-ray is showing bibasilar opacities and previous mitral valve replacement. IMPRESSION A 71-year-old female with a history of atrial fibrillation. I will have to review the chart to see if it is chronic or paroxysmal. Ventricular rate has been mildly elevated despite being on metoprolol. I am going to add p.o. diltiazem 60 mg q.8h. and follow. 2-D echo Doppler is ordered to check LV function. Further therapy to be determined. MD SHOBHA Patel/SUE /10:48 AM /10:55 AM
[2017-05-10] MEDS: LEVOFLOXACIN 750 MG PREMIX INJ 150 ML IV SCH (13:12)
[2017-05-10] MEDS: DILTIAZEM HCL 60 MG TAB PO SCH ×2 (13:13→21:44)
[2017-05-10 15:59] LABS: HEMOGLOBIN A1a 0.8 %; HEMOGLOBIN A1b 2.3 %; HEMOGLOBIN Ao 81.5 %; HEMOGLOBIN LA1C 2.7 %; HEMOGLOBIN P3 4.6 %
--- NOTE | 2017-05-10 16:28 | ECHRPT ---
Indication: CONCLUSIONS The left ventricular systolic function is mildly reduced with an estimated ejection fraction in the range of 45- 50%. Normal left ventricular size. No regional wall motion abnormalities are present. The left atrial size is moderately dilated. The left atrium was not well visualized. The right atrial size is moderately dilated. The aortic root and proximal ascending aorta are not well visualized. Bioprothesis mitral valve. Mild mitral valve stenosis. Moderate mitral annular calcification. Uzkp-qt-stntecjo mitral valve regurgitation. Aortic valve sclerosis is present. Vwby-wn-hcueozpp aortic valve regurgitation. There is moderate tricuspid regurgitation. The estimated pulmonary arterial pressure is 41.8 mmHg. Mild pulmonary valve regurgitation. BP: / HR: Rhythm: Sinus MEASUREMENTS (Male / Female) Normal Values Technical Quality:Fair 2D ECHO LV Diastolic Diameter PLAX 3.4 cm 4.2 - 5.9 / 3.9 - 5.3 cm LV Systolic Diameter PLAX 2.9 cm IVS Diastolic Thickness 1.6 cm 0.6 - 1.0 / 0.6 - 0.9 cm LVPW Diastolic Thickness 1.6 cm 0.6 - 1.0 / 0.6 - 0.9 cm LV Relative Wall Thickness 1.0 RV Internal Dim ED PLAX 2.8 cm LA Systolic Diameter LX 4.0 cm 3.0 - 4.0 / 2.7 - 3.8 cm LV Ejection Fraction MOD 4C 38.3 % LV Ejection Fraction 4C AL 37.8 % DOPPLER AV Peak Velocity 137.0 cm/s AV Peak Gradient 7.5 mmHg AI Peak Velocity 358.5 cm/s AI Peak Gradient 51.4 mmHg AI Pressure Half Time 193.0 ms LVOT Peak Velocity 82.7 cm/s LVOT Peak Gradient 2.7 mmHg MV Peak Velocity 252.0 cm/s MV Peak Gradient 25.4 mmHg MV Mean Velocity 149.0 cm/s MV Mean Gradient 10.0 mmHg MV Area PHT 1.8 cm LV E' Lateral Velocity 6.5 cm/s LV E' Septal Velocity 5.7 cm/s TR Peak Velocity 282.0 cm/s TR Peak Gradient 31.8 mmHg Right Atrial Pressure 10.0 mmHg Pulmonary Artery Systolic Pressu 41.8 mmHg Right Ventricular Systolic Press 41.8 mmHg PV Peak Velocity 109.0 cm/s PV Peak Gradient 4.8 mmHg FINDINGS LEFT VENTRICLE The left ventricular systolic function is mildly reduced with an estimated ejection fraction in the range of 45- 50%. Left ventricular diastolic function parameters are normal. Normal left ventricular size. No regional wall motion abnormalities are present. RIGHT VENTRICLE Normal right ventricular size and systolic function. LEFT ATRIUM The left atrial size is moderately dilated. The left atrium was not well visualized. RIGHT ATRIUM The right atrial size is moderately dilated. AORTA The aortic root and proximal ascending aorta are not well visualized. MITRAL VALVE Bioprothesis mitral valve. Mild mitral valve stenosis. Moderate mitral annular calcification. [id number] mitral valve regurgitation. AORTIC VALVE Aortic valve sclerosis is present. [id number] aortic valve regurgitation. TRICUSPID VALVE Structurally normal tricuspid valve. There is moderate tricuspid regurgitation. The estimated pulmonary arterial pressure is 41.8 mmHg. PULMONARY VALVE Mild pulmonary valve regurgitation. VESSELS The inferior vena cava is normal in size. PERICARDIUM No pericardial effusion. Matt Ahuja MD (Electronically Signed) Final Date:10 May 2017 16:27
--- NOTE | 2017-05-10 19:20 | MB ---
cc: ANGELICA BIRMINGHAM DATE OF CONSULTATION 05/10/[address] Ck Eaton REASON FOR CONSULTATION Shortness of breath and wheezing. HISTORY OF PRESENT ILLNESS Ms. Adhikari is a pleasant 71-year-old Amharic female with history of coronary artery disease, cardiomyopathy, history of mitral valve replacement. The patient came to the hospital. The patient's daughter is at the bedside provided most of the history. The patient came to the hospital with one week history of cough and congestion, worsening of her shortness of breath to the extent that any little activity makes her short of breath, did not have any fever or chills. No chest pain, no nausea or vomiting. She was evaluated in the emergency room. She was found to be in paroxysmal atrial fibrillation. She was started on Cardizem which is put to p.o. Cardizem. She has cough and congestion. No fever or chest pain. PAST MEDICAL HISTORY 1. Hyperlipidemia 2. Knee replacement, 3. Cataract surgery, 4. Mitral valve replacement 5. History of diabetes mellitus, 6. Transient ischemic attack. MEDICATIONS Currently taking 1. Potassium supplement 2. Levaquin 750 mg a day 3. Diltiazem 60 mg q. 8 hr. 4. Potassium 20 mEq daily, 5. Lasix 20 mEq a day 6. Lipitor 40 mg a day 7. Lisinopril 5 mg twice a day. 8. Metoprolol 50 mg twice a day. 9. She is on insulin 10. Symbicort 167/4.5 11. Solu-Medrol 60 mg q.6 h 12. Mucinex ER 16 mg twice a day. 13. Albuterol/Atrovent nebulizer treatment. ALLERGIES NO KNOWN DRUG ALLERGIES. SOCIAL HISTORY She is a , lives with her daughter. She used to work for [employer]. She has no history of smoke or alcoholism. FAMILY HISTORY She has three children. REVIEW OF SYSTEMS Normally she is up, around and active. Weight is stable. No malignancy. No DVT or pulmonary embolism. PHYSICAL EXAMINATION GENERAL: Elderly female mildly short of breath in mild discomfort because of persistent cough VITAL SIGNS: Blood pressure 105/63, heart rate 90, respirations 20, temperature 97.8 HEENT: Unremarkable NECK: Supple. JVP not raised. CHEST: Equal bilaterally. She had bilateral expiratory rhonchi. CARDIOVASCULAR: S1, S2 normal. ABDOMEN: Soft, nondistended. Bowel sounds are present EXTREMITIES: No edema. IMPRESSION 1. Acute bronchitis. 2. Bronchospasm 3. Atrial fibrillation now in sinus rhythm 4. Cardiomyopathy. 5. History of TIA. 6. History of knee surgery 7. History of mitral valve replacement. PLAN I discussed with the patient and her daughter we will give her IV Solu-Medrol, aerosol treatment. Continue antibiotic. She is stable on room air. She is on Cardizem for rate control. By tomorrow we will switch her to p.o. steroids and by mouth antibiotics. Further treatment will depend on the treatment in the hospital. Thank you, Dr. Ck Eaton, for this consultation. MD MOON Cabrera/ /6:26 PM /6:52 PM ELENA
[2017-05-10] MEDS ORDERED: POTASSIUM CHLORIDE 20 MEQ CONTROLLED RELEASE TAB PO SCH (21:00)
--- NOTE | 2017-05-10 21:34 | RADRPT ---
EXAM DATE/TIME: 05/10/2017 21:20 [place] COMPARISON: CHEST SINGLE AP, May 09, 2017, 14:36. INDICATIONS : Short of breath. MEDICAL HISTORY : None. SURGICAL HISTORY : CABG. ENCOUNTER: Subsequent ACUITY: 2 days PAIN SCORE: 0/10 LOCATION: Bilateral chest FINDINGS: There is improvement in the aeration of lungs, however a tiny left pleural effusion remains. Slight c ardiomegaly has not changed. CONCLUSION: Overall improvement in the aeration of the lungs. Lila Garcia MD on May 10, 2017 at 21:32 Board Certified Radiologist. This report was verified electronically.
[2017-05-10] MEDS: ATORVASTATIN 40 MG TAB PO SCH (21:41)
--- NOTE | 2017-05-10 21:53 | EKG ---
Date Performed: 05/09/2017 Time Performed: 14:47:38 PTAGE: 71 years EKG: ATRIAL FIBRILLATION WITH RAPID VENTRICULAR RESPONSE AND ONE VENTRICULAR ECTOPIC BEAT. LOW Q RS VOLTAGE IN PRECORDIAL LEADS NONSPECIFIC ST T CHANGE. SINCE PREVIOUS TRACING, HEART RATE IS FASTER, OTHERWISE NO SIGNIFICANT CHANGE. ABNORMAL ECG PREVIOUS TRACING : 04/19/2015 03.34 DOCTOR: Savage Sawyer Interpretating Date/Time 05/10/2017 21:53:16
--- NOTE | 2017-05-10 21:57 | EKG ---
Date Performed: 05/10/2017 Time Performed: 00:26:56 PTAGE: 71 years EKG: Atrial fibrillation with frequent ventricular ectopic beats and probably aberrant conductio n. Diffused nonspecific ST T change. Since previous tracing, heart rate is slower. Abnormal ECG PREVIOUS TRACING : 05/09/2017 14.47 DOCTOR: Savage Sawyer Interpretating Date/Time 05/10/2017 21:55:45
[2017-05-11] VITALS (20 sets, daily range): BP systolic 90–128; BP diastolic 53–78; PULSE 62–105; RESP 16–18; TEMP 97.5–97.8; O2SAT 91–97
[2017-05-11] MEDS: methylPREDNISolone SOD SUCC 125 MG/2 ML VIAL IV PUSH SCH ×3 (03:19→15:44)
[2017-05-11] MEDS: RESP: ALBUTEROL 2.5 MG/IPRATROPIUM 0.5 MG NEB (SCH) INH ×4 (04:09→16:46)
[2017-05-11] MEDS: DILTIAZEM HCL 60 MG TAB PO SCH (06:16)
[2017-05-11] MEDS: INSULIN ASPART SUPPLEMENTAL SCALE SQ SCH ×3 (08:20→18:06)
[2017-05-11] MEDS: SODIUM CHLORIDE 0.9% FLUSH 10 ML FLUSH IV FLUSH SCH (08:22)
[2017-05-11] MEDS: RIVAROXABAN 20 MG TAB PO SCH (08:23)
[2017-05-11] MEDS: POTASSIUM CHLORIDE 20 MEQ CONTROLLED RELEASE TAB PO SCH ×2 (08:23→09:12)
[2017-05-11] MEDS: LISINOPRIL 5 MG TAB PO SCH (08:23)
[2017-05-11] MEDS: METOPROLOL TARTRATE 50 MG TAB PO SCH (08:24)
[2017-05-11] MEDS: guaiFENesin E.R. 600 MG TAB PO SCH (08:24)
[2017-05-11] MEDS: DOCUSATE SODIUM 50 MG/SENNA 8.6 MG TAB PO SCH (08:24)
[2017-05-11] MEDS: FUROSEMIDE 20 MG/2 ML VIAL IV PUSH SCH (08:25)
[2017-05-11] MEDS: BUDESONIDE-FORMOTEROL 160/4.5 MCG INHALER INH SCH (08:26)
[2017-05-11] MEDS: PANTOPRAZOLE SOD 40 MG DELAYED RELEASE TAB PO SCH (09:12)
--- NOTE | 2017-05-11 10:02 | HHI.PR ---
Subjective Remarks Patient is 71-year-old female. Who presented to the emergency department with a history of congestive heart failure, atrial fibrillation, cerebrovascular accident, diabetes mellitus, hypertension, hyperlipidemia, and bovine mitral valve replacement presents to emergency room for worsening shortness of breath and productive cough of at least a week. The patient does not speak any Panamanian her daughter is at bedside and speaks fluent Panamanian and is able to translate. Patient denies any fever or chills or any nausea or vomiting denies any abdominal pain or changes in her bowel habits habits denies any dysuria has had a cough that's been productive of greenish sputum had recently been taken off her water pill by her lung doctor because she was doing well. Denies any tobacco does not have oxygen at home is followed by Dr. Gregg Rivas and Dr. Diaz Patient is in A. fib with RVR will be admitted to [facility] on a Cardizem drip will be given steroids would be given antibiotics will be given breathing treatments and duo nebs will consult cardiology and pulmonary. NOTE DID NOT SAVE FOR 05-10 WAS TRANSITIONED OFF CARDIZEM DRIP BY CARDIO STILL SOME COUGHING Objective Vitals Vital Signs Date Time Temp Pulse Resp B/P (MAP) Pulse Ox O2 Delivery O2 Flow Rate FiO2 05/11/17 07:58 97.8 81 16 123/78 (93) 91 05/11/17 07:54 93 05/11/17 06:00 79 05/11/17 05:00 96 05/11/17 04:00 81 05/11/17 03:00 80 05/11/17 03:00 97.5 72 18 128/69 (88) 94 05/11/17 02:00 105 05/11/17 01:00 80 05/11/17 00:00 99 05/10/17 23:30 97.5 101 18 119/72 (88) 98 05/10/17 23:00 101 05/10/17 22:00 112 05/10/17 21:00 108 05/10/17 20:24 96 21 05/10/17 20:00 98 05/10/17 20:00 97.2 95 18 147/69 (95) 95 05/10/17 19:00 88 05/10/17 18:00 89 05/10/17 17:00 98 05/10/17 16:00 97.8 90 20 105/63 (77) 97 05/10/17 16:00 90 05/10/17 15:00 103 05/10/17 14:00 96 05/10/17 13:00 92 05/10/17 12:00 80 05/10/17 11:00 80 05/10/17 11:00 97.0 86 20 106/65 (79) 93 05/10/17 10:42 88 117/71 I/O 05/10/17 05/10/17 05/10/17 05/11/17 05/11/17 05/11/17 07:00 15:00 23:00 07:00 15:00 23:00 Intake Total 285 ml 213 ml 285 ml 720 ml Output Total 450 ml Balance 285 ml 213 ml 285 ml 270 ml Intake Oral 240 ml 240 ml 720 ml IV Total 45 ml 213 ml 45 ml Output Urine Total 450 ml # Voids 3 1 # Bowel Movements 0 Result Diagram: 05/10/17 0327 05/10/17 0327 Other Results Laboratory Tests Test 05/09/17 14:30 05/09/17 15:00 05/09/17 16:00 05/09/17 20:15 White Blood Count 8.5 TH/MM3 Red Blood Count 4.24 MIL/MM3 Hemoglobin 11.6 GM/DL Hematocrit 35.9 % Mean Corpuscular Volume 84.6 FL Mean Corpuscular Hemoglobin 27.4 PG Mean Corpuscular Hemoglobin Concent 32.4 % Red Cell Distribution Width 14.6 % Platelet Count 279 TH/MM3 Mean Platelet Volume 7.2 FL Neutrophils (%) (Auto) 73.9 % Lymphocytes (%) (Auto) 14.8 % Monocytes (%) (Auto) 10.1 % Eosinophils (%) (Auto) 0.7 % Basophils (%) (Auto) 0.5 % Neutrophils # (Auto) 6.3 TH/MM3 Lymphocytes # (Auto) 1.3 TH/MM3 Monocytes # (Auto) 0.9 TH/MM3 Eosinophils # (Auto) 0.1 TH/MM3 Basophils # (Auto) 0.0 TH/MM3 CBC Comment DIFF FINAL Differential Comment Prothrombin Time 11.1 SEC Prothromb Time International Ratio 1.0 RATIO Activated Partial Thromboplast Time 34.3 SEC Blood Urea Nitrogen 10 MG/DL Creatinine 0.97 MG/DL Random Glucose 145 MG/DL Total Protein 7.0 GM/DL Albumin 2.9 GM/DL Calcium Level 8.3 MG/DL Magnesium Level 2.1 MG/DL Alkaline Phosphatase 112 U/L Aspartate Amino Transf (AST/SGOT) 84 U/L Alanine Aminotransferase (ALT/SGPT) 67 U/L Total Bilirubin 0.7 MG/DL Sodium Level 135 MEQ/L Potassium Level 3.6 MEQ/L Chloride Level 100 MEQ/L Carbon Dioxide Level 26.4 MEQ/L Anion Gap 9 MEQ/L Estimat Glomerular Filtration Rate 57 ML/MIN Total Creatine Kinase 581 U/L Creatine Kinase MB 3.6 NG/ML Creatine Kinase MB % 0.6 % Troponin I LESS THAN 0.02 NG/ML B-Type Natriuretic Peptide 345 PG/ML 250 PG/ML Thyroid Stimulating Hormone 3rd Gen 0.941 uIU/ML Urine Color LIGHT-YELLOW Urine Turbidity CLEAR Urine pH 6.5 Urine Specific [place] 1.003 Urine Protein TRACE mg/dL Urine Glucose (UA) NEG mg/dL Urine Ketones NEG mg/dL Urine Occult Blood TRACE Urine Nitrite NEG Urine Bilirubin NEG Urine Urobilinogen LESS THAN 2.0 MG/DL Urine Leukocyte Esterase SMALL Urine RBC 1 /hpf Urine WBC 3 /hpf Urine Squamous Epithelial Cells 1 /hpf Urine Transitional Epithelial Cells 1 /hpf Urine Bacteria RARE /hpf Microscopic Urinalysis Comment CULT NOT INDICATED Blood Gas Puncture Site RT RADIAL Blood Gas Patient Temperature 98.6 Blood Gas HCO3 23 mmol/L Blood Gas Base Excess -0.1 mmol/L Blood Gas Oxygen Saturation 94 % Arterial Blood pH 7.46 Arterial Blood Partial Pressure CO2 33 mmHg Arterial Blood Partial Pressure O2 78 mmHG Arterial Blood Oxygen Content 15.0 Vol % Arterial Blood Carboxyhemoglobin 1.3 % Arterial Blood Methemoglobin 0.5 % Blood Gas Hemoglobin 11.3 G/DL Oxygen Delivery Device NASAL CANNULA Blood Gas Liter Flow 2 L/M Test 05/09/17 21:38 05/10/17 03:27 Magnesium Level 2.0 MG/DL 2.2 MG/DL Total Creatine Kinase 478 U/L 411 U/L Creatine Kinase MB 3.0 NG/ML 3.4 NG/ML Creatine Kinase MB % 0.6 % 0.8 % Troponin I LESS THAN 0.02 NG/ML LESS THAN 0.02 NG/ML White Blood Count 11.0 TH/MM3 Red Blood Count 4.07 MIL/MM3 Hemoglobin 10.9 GM/DL Hematocrit 33.9 % Mean Corpuscular Volume 83.4 FL Mean Corpuscular Hemoglobin 26.8 PG Mean Corpuscular Hemoglobin Concent 32.2 % Red Cell Distribution Width 14.7 % Platelet Count 293 TH/MM3 Mean Platelet Volume 7.1 FL Neutrophils (%) (Auto) 91.0 % Lymphocytes (%) (Auto) 5.8 % Monocytes (%) (Auto) 3.0 % Eosinophils (%) (Auto) 0.0 % Basophils (%) (Auto) 0.2 % Neutrophils # (Auto) 10.0 TH/MM3 Lymphocytes # (Auto) 0.6 TH/MM3 Monocytes # (Auto) 0.3 TH/MM3 Eosinophils # (Auto) 0.0 TH/MM3 Basophils # (Auto) 0.0 TH/MM3 CBC Comment DIFF FINAL Differential Comment Blood Urea Nitrogen 15 MG/DL Creatinine 1.20 MG/DL Random Glucose 174 MG/DL Total Protein 6.8 GM/DL Albumin 2.8 GM/DL Calcium Level 8.4 MG/DL Phosphorus Level 1.9 MG/DL Alkaline Phosphatase 102 U/L Aspartate Amino Transf (AST/SGOT) 52 U/L Alanine Aminotransferase (ALT/SGPT) 58 U/L Total Bilirubin 0.9 MG/DL Sodium Level 138 MEQ/L Potassium Level 3.3 MEQ/L Chloride Level 100 MEQ/L Carbon Dioxide Level 26.6 MEQ/L Anion Gap 11 MEQ/L Estimat Glomerular Filtration Rate 45 ML/MIN Hemoglobin A1c 7.0 % Free Thyroxine 1.65 NG/DL Thyroid Stimulating Hormone 3rd Gen 0.409 uIU/ML Imaging Last Impressions Chest X-Ray 05/10/17 0000 Signed Impressions: Service Date/Time: Wednesday, May 10, 2017 21:20 - CONCLUSION: Overall improvement in the aeration of the lungs. Lila Garcia MD Objective Remarks GENERAL: This is a well-nourished, well-developed patient, in no apparent distress. SKIN: No rashes, ecchymoses or lesions. Cool and dry. HEAD: Atraumatic. Normocephalic. No temporal or scalp tenderness. EYES: Pupils equal round and reactive. Extraocular motions intact. No scleral icterus. No injection or drainage. ENT: Nose without bleeding, purulent drainage or septal hematoma. Throat without erythema, tonsillar hypertrophy or exudate. Uvula midline. Airway patent. Tongue is midline NECK: Trachea midline. No JVD or lymphadenopathy. Supple, nontender, no meningeal signs. CARDIOVASCULAR: IRRegular rate and rhythm without murmurs, gallops, or rubs. S1 and S2 no S3 or S4 RESPIRATORY: Decreased breath sounds bilaterally. Breath sounds equal bilaterally. No wheezes, rales, or rhonchi. GASTROINTESTINAL: Abdomen soft, non-tender, nondistended. No hepato-splenomegaly , or palpable masses. No guarding. MUSCULOSKELETAL: Extremities without clubbing, cyanosis, or edema. No joint tenderness, effusion, or edema noted. No calf tenderness. Negative Homans sign bilaterally. Right knee old surgical scar left leg surgical scar NEUROLOGICAL: Awake and alert. Cranial nerves II through XII intact. Motor and sensory grossly within normal limits. Five out of 5 muscle strength in all muscle groups. Normal speech. Insight and judgment appears to be good per communication with her daughter mood and behavior appears appropriate Medications and IVs Current Medications Sodium Chloride (NS Flush) 2 ml UNSCH PRN IVF FLUSH AFTER USING IV ACCESS Last administered on 05/09/17 16:02; Start 05/09/17 at 14:30; Stop 05/09/17 at 18 :46; Status DC Methylprednisolone Sodium Succinate (SoluMEDROL INJ) 125 mg ONCE ONCE IV PUSH Last administered on 05/09/17 15:07; Start 05/09/17 at 14:30; Stop 05/09/17 at 14:31; Status DC Albuterol/ Ipratropium (Duoneb Neb) 1 ampule Q15M INH Last administered on 14:33; Start 05/09/17 at 14:30; Stop 05/09/17 at 14:46; Status DC Diltiazem HCl (Cardizem Inj) 20 mg ONCE ONCE IV Last administered on 16:02; Start 05/09/17 at 15:45; Stop 05/09/17 at 15:46; Status DC Diltiazem HCl (Cardizem) 90 mg ONCE ONCE PO Last administered on 05/09/17 16 :02; Start 05/09/17 at 15:45; Stop 05/09/17 at 15:46; Status DC Levofloxacin (Levaquin) 750 mg ONCE ONCE PO Last administered on 05/09/17 16 :29; Start 05/09/17 at 16:30; Stop 05/09/17 at 16:31; Status DC Furosemide (Lasix Inj) 40 mg ONCE ONCE IV PUSH Last administered on 16:29; Start 05/09/17 at 16:30; Stop 05/09/17 at 16:31; Status DC Diltiazem HCl 125 mg/Sodium Chloride 125 ml @ 5 mls/hr TITRATE PRN IV Tachycardia Last administered on 05/09/17 17:51; Start 05/09/17 at 17:15; Stop 05/09/17 at 18:46; Status DC Atorvastatin Calcium (Lipitor) 40 mg HS PO Last administered on 05/10/17 21: 41; Start 05/09/17 at 21:00 Lisinopril (Prinivil) 5 mg BID PO Last administered on 05/11/17 08:23; Start 05/09/17 at 21:00 Metoprolol Tartrate (Lopressor) 50 mg BID PO Last administered on 05/11/17 08 :24; Start 05/09/17 at 21:00 Rivaroxaban (Xarelto) 20 mg DAILY PO Last administered on 05/11/17 08:23; Start 05/09/17 at 18:45 Dextrose (D50w (Vial) Inj) 50 ml UNSCH PRN IV PUSH HYPOGLYCEMIA-SEE COMMENTS; Start 05/09/17 at 18:45 Glucagon (Glucagon Inj) 1 mg UNSCH PRN OTHER HYPOGLYCEMIA-SEE COMMENTS; Start 05/09/17 at 18:45 Insulin Aspart (NovoLOG SUPPLEMENTAL SCALE) 1 ACHS SLIDING SCALE SQ Last administered on 05/11/17 08:20; Start 05/09/17 at 21:00 Sodium Chloride (NS Flush) 2 ml BID IV FLUSH ; Start 05/09/17 at 21:00; Stop 05/09/17 at 21:00; Status DC Sodium Chloride (NS Flush) 2 ml UNSCH PRN IV FLUSH FLUSH AFTER USING IV ACCESS ; Start 05/09/17 at 18:45; Stop 05/09/17 at 18:46; Status DC Albuterol/ Ipratropium (Duoneb Neb) 1 ampule Q4HR NEB INH Last administered on 05/11/17 07:52; Start 05/09/17 at 20:00 Budesonide/ Formoterol Fumarate (Symbicort 160-4.5 Inh) 2 puff Q12HR INH Last administered on 05/11/17 08:26; Start 05/09/17 at 21:00 Methylprednisolone Sodium Succinate (SoluMEDROL INJ) 60 mg Q6H IV PUSH Last administered on 05/11/17 08:22; Start 05/09/17 at 21:00 Levofloxacin/ Dextrose 150 ml @ 100 mls/hr Q24H IV Last administered on 13:12; Start 05/10/17 at 15:00 Sodium Chloride (NS Flush) 2 ml UNSCH PRN IV FLUSH FLUSH AFTER USING IV ACCESS ; Start 05/09/17 at 18:45; Stop 05/09/17 at 18:46; Status DC Sodium Chloride (NS Flush) 2 ml BID IV FLUSH ; Start 05/09/17 at 21:00; Stop 05/09/17 at 21:00; Status DC Diltiazem HCl 125 mg/Sodium Chloride 125 ml @ 5 mls/hr TITRATE PRN IV Tachycardia Last administered on 05/10/17 10:42; Start 05/09/17 at 18:45 Sodium Chloride (NS Flush) 2 ml UNSCH PRN IV FLUSH FLUSH AFTER USING IV ACCESS ; Start 05/09/17 at 18:45 Sodium Chloride (NS Flush) 2 ml BID IV FLUSH Last administered on 05/11/17 08 :22; Start 05/09/17 at 21:00 Acetaminophen (Tylenol) 650 mg Q4H PRN PO TEMP > 100.4; Start 05/09/17 at 18: 45 Ondansetron HCl (Zofran Inj) 4 mg Q6H PRN IVP NAUSEA OR VOMITING; Start at 18:45 Prochlorperazine (Compazine Supp) 25 mg Q12H PRN RECTAL NAUSEA OR VOMITING; Start 05/09/17 at 18:45 Acetaminophen (Tylenol) 650 mg Q6H PRN PO PAIN SCALE 1 TO 2; Start 05/09/17 at 18:45 Oxycodone/ Acetaminophen (Percocet 5-325 Mg) 1 tab Q6H PRN PO PAIN SCALE 3 TO 5 Last administered on 05/10/17 23:32; Start 05/09/17 at 18:45 Oxycodone/ Acetaminophen (Percocet 10-325 Mg) 1 tab Q6H PRN PO PAIN SCALE 6 TO 10; Start 05/09/17 at 18:45 Morphine Sulfate (Morphine Inj) 2 mg Q3H PRN IV PUSH Pain 3-5; if unable to take PO Last administered on 05/10/17 20:26; Start 05/09/17 at 18:45 Morphine Sulfate (Morphine Inj) 4 mg Q3H PRN IV PUSH Pain 6-10;if unable to take PO; Start 05/09/17 at 18:45 Naloxone HCl (Narcan Inj) 0.4 mg UNSCH PRN IV PUSH SEE LABEL COMMENTS; Start 05/09/17 at 18:45 Senna/Docusate Sodium (Diana-Colace) 1 tab BID PO Last administered on 08:24; Start 05/09/17 at 21:00 Magnesium Hydroxide (Milk Of Magnesia Liq) 30 ml Q12H PRN PO Mild constipation ; Start 05/09/17 at 18:45 Sennosides (Senokot) 17.2 mg Q12H PRN PO Moderate constipation; Start at 18:45 Bisacodyl (Dulcolax Supp) 10 mg DAILY PRN RECTAL SEVERE CONSITIPATION; Start 05/09/17 at 18:45 Lactulose (Lactulose Liq) 30 ml DAILY PRN PO SEVERE CONSITIPATION; Start 05/09 at 18:45 Furosemide (Lasix Inj) 20 mg DAILY IV PUSH Last administered on 05/11/17 08: 25; Start 05/10/17 at 09:00 Guaifenesin (Mucinex Er) 600 mg BID PO Last administered on 05/11/17 08:24; Start 05/09/17 at 21:00 Pantoprazole Sodium (Protonix) 40 mg Q12HR PO Last administered on 05/11/17 09:12; Start 05/09/17 at 21:00 Potassium Chloride (KCl) 40 meq ONCE ONCE PO Last administered on 05/10/17 10:58; Start 05/10/17 at 10:00; Stop 05/10/17 at 10:01; Status DC Potassium Chloride (KCl) 20 meq DAILY PO Last administered on 05/11/17 08:23 ; Start 05/10/17 at 10:00 Potassium Chloride (KCl) 40 meq ONCE ONCE PO ; Start 05/10/17 at 10:45; Stop 05/10/17 at 11:22; Status DC Potassium Chloride (KCl) 20 meq Q12HR PO ; Start 05/10/17 at 21:00; Stop 05/10 at 21:00; Status DC Diltiazem HCl (Cardizem) 60 mg Q8HR PO ; Start 05/10/17 at 11:00; Stop at 11:22; Status DC Potassium Chloride (KCl) 40 meq ONCE ONCE PO Last administered on 05/10/17 13:13; Start 05/10/17 at 13:00; Stop 05/10/17 at 13:01; Status DC Potassium Chloride (KCl) 20 meq Q12HR PO Last administered on 05/11/17 09:12 ; Start 05/10/17 at 21:00 Diltiazem HCl (Cardizem) 60 mg Q8HR PO Last administered on 05/11/17 06:16; Start 05/10/17 at 13:00 Urinary Catheter: No Vascular Central Line Catheter: No A/P Problem List: (1) Hx of mitral valve replacement with tissue graft ICD Code: Z95.4 - Hx of mitral valve replacement with tissue graft Status: Acute (2) Hx of coronary artery disease ICD Code: Z86.79 - Hx of coronary artery disease Status: Acute (3) Anticoagulated ICD Code: Z79.01 - Anticoagulated Status: Acute (4) CVA (cerebral vascular accident) ICD Code: I63.9 - Cerebral infarction, unspecified (5) Hypertension ICD Code: I10 - Essential (primary) hypertension (6) Respiratory insufficiency ICD Code: R06.89 - Other abnormalities of breathing (7) Hyperlipidemia ICD Code: E78.5 - Hyperlipidemia, unspecified (8) Diabetes mellitus ICD Code: E11.9 - Type 2 diabetes mellitus without complications (9) Atrial fibrillation ICD Code: I48.91 - Unspecified atrial fibrillation (10) COPD (chronic obstructive pulmonary disease) ICD Code: J44.9 - Chronic obstructive pulmonary disease, unspecified (11) History of chronic atrial fibrillation ICD Code: I48.2 - History of chronic atrial fibrillation Status: Acute Assessment and Plan Atrial fibrillation with rapid ventricular response continue on Cardizem drip continue on home medications continue on Xarelto Consult cardiology COPD possible exacerbation versus bronchitis will continue on DuoNeb's continue on Levaquin continue on Mucinex continue on incentive spirometry continue on Solu-Medrol Diabetes mellitus Accu-Cheks before meals and at bedtime with medium dose sliding scale due to steroids Congestive heart failure mild continue on Lasix 20 mg IV daily Chronic anticoagulation on Xarelto History of bovine mitral valve repair stable an echo History of CVA we'll ask physical therapy and occupational therapy to eval and treat Hyperlipidemia continue on statin Hypertension continue on home medications DVT prophylaxis with Xarelto GI prophylaxis with Protonix For any other information please see the chart NOTE FROM 05-10 DID NOT SAVE THIS IS THE NOTE FOR IT Ck Eaton DO May 11, 2017 10:02
--- NOTE | 2017-05-11 10:06 | PD.CARD.PN ---
Subjective Subjective Remarks Coughing alot. Feeling well enough to go home Objective Medications Current Medications Medications (Trade) Dose Ordered Sig/Anival Route Start Time Stop Time Status Last Admin (Lipitor) 40 mg HS PO 05/09/17 21:00 05/10/17 21:41 (Prinivil) 5 mg BID PO 05/09/17 21:00 05/11/17 08:23 (Lopressor) 50 mg BID PO 05/09/17 21:00 05/11/17 08:24 (Xarelto) 20 mg DAILY PO 05/09/17 18:45 05/11/17 08:23 (D50w (Vial) Inj) 50 ml UNSCH PRN IV PUSH 05/09/17 18:45 (Glucagon Inj) 1 mg UNSCH PRN OTHER 05/09/17 18:45 (NovoLOG SUPPLEMENTAL SCALE) 1 ACHS SLIDING SCALE SQ 05/09/17 21:00 05/11/17 08:20 (Duoneb Neb) 1 ampule Q4HR NEB INH 05/09/17 20:00 05/11/17 07:52 (Symbicort 160-4.5 Inh) 2 puff Q12HR INH 05/09/17 21:00 05/11/17 08:26 (SoluMEDROL INJ) 60 mg Q6H IV PUSH 05/09/17 21:00 05/11/17 08:22 Levofloxacin/ Dextrose 150 ml @ 100 mls/hr Q24H IV 05/10/17 15:00 05/10/17 13:12 Diltiazem HCl 125 mg/Sodium Chloride 125 ml @ 5 mls/hr TITRATE PRN IV 05/09/17 18:45 05/10/17 10:42 (NS Flush) 2 ml UNSCH PRN IV FLUSH 05/09/17 18:45 (NS Flush) 2 ml BID IV FLUSH 05/09/17 21:00 05/11/17 08:22 (Tylenol) 650 mg Q4H PRN PO 05/09/17 18:45 (Zofran Inj) 4 mg Q6H PRN IVP 05/09/17 18:45 (Compazine Supp) 25 mg Q12H PRN RECTAL 05/09/17 18:45 (Tylenol) 650 mg Q6H PRN PO 05/09/17 18:45 (Percocet 5-325 Mg) 1 tab Q6H PRN PO 05/09/17 18:45 05/10/17 23:32 (Percocet 10-325 Mg) 1 tab Q6H PRN PO 05/09/17 18:45 (Morphine Inj) 2 mg Q3H PRN IV PUSH 05/09/17 18:45 05/10/17 20:26 (Morphine Inj) 4 mg Q3H PRN IV PUSH 05/09/17 18:45 (Narcan Inj) 0.4 mg UNSCH PRN IV PUSH 05/09/17 18:45 (Diana-Colace) 1 tab BID PO 05/09/17 21:00 05/11/17 08:24 (Milk Of Magnesia Liq) 30 ml Q12H PRN PO 05/09/17 18:45 (Senokot) 17.2 mg Q12H PRN PO 05/09/17 18:45 (Dulcolax Supp) 10 mg DAILY PRN RECTAL 05/09/17 18:45 (Lactulose Liq) 30 ml DAILY PRN PO 05/09/17 18:45 (Lasix Inj) 20 mg DAILY IV PUSH 05/10/17 09:00 05/11/17 08:25 (Mucinex Er) 600 mg BID PO 05/09/17 21:00 05/11/17 08:24 (Protonix) 40 mg Q12HR PO 05/09/17 21:00 05/11/17 09:12 (KCl) 20 meq DAILY PO 05/10/17 10:00 05/11/17 08:23 (KCl) 20 meq Q12HR PO 05/10/17 21:00 05/11/17 09:12 (Cardizem) 60 mg Q8HR PO 05/10/17 13:00 05/11/17 06:16 Vital Signs / I&O Vital Signs Date Time Temp Pulse Resp B/P (MAP) Pulse Ox O2 Delivery O2 Flow Rate FiO2 05/11/17 07:58 97.8 81 16 123/78 (93) 91 05/11/17 07:54 93 05/11/17 06:00 79 05/11/17 05:00 96 05/11/17 04:00 81 05/11/17 03:00 80 05/11/17 03:00 97.5 72 18 128/69 (88) 94 05/11/17 02:00 105 05/11/17 01:00 80 05/11/17 00:00 99 05/10/17 23:30 97.5 101 18 119/72 (88) 98 05/10/17 23:00 101 05/10/17 22:00 112 05/10/17 21:00 108 05/10/17 20:24 96 21 05/10/17 20:00 98 05/10/17 20:00 97.2 95 18 147/69 (95) 95 05/10/17 19:00 88 05/10/17 18:00 89 05/10/17 17:00 98 05/10/17 16:00 97.8 90 20 105/63 (77) 97 05/10/17 16:00 90 05/10/17 15:00 103 05/10/17 14:00 96 05/10/17 13:00 92 05/10/17 12:00 80 05/10/17 11:00 80 05/10/17 11:00 97.0 86 20 106/65 (79) 93 05/10/17 10:42 88 117/71 I/O 05/10/17 05/10/17 05/10/17 05/11/17 05/11/17 05/11/17 07:00 15:00 23:00 07:00 15:00 23:00 Intake Total 285 ml 213 ml 285 ml 720 ml Output Total 450 ml Balance 285 ml 213 ml 285 ml 270 ml Intake Oral 240 ml 240 ml 720 ml IV Total 45 ml 213 ml 45 ml Output Urine Total 450 ml # Voids 3 1 # Bowel Movements 0 Physical Exam Alert Chest no rales CV S1S2 irreg irreg - rate is much better Ext no edema Assessment and Plan Problem List: (1) Bronchitis ICD Codes: J40 - Bronchitis, not specified as acute or chronic (2) History of chronic atrial fibrillation ICD Codes: I48.2 - History of chronic atrial fibrillation Status: Acute Plan: rate better controlled now (3) Hypertension ICD Codes: I10 - Essential (primary) hypertension (4) COPD (chronic obstructive pulmonary disease) ICD Codes: J44.9 - Chronic obstructive pulmonary disease, unspecified (5) History of mitral valve replacement with bioprosthetic valve ICD Codes: Z95.3 - Presence of xenogenic heart valve (6) Hypokalemia ICD Codes: E87.6 - Hypokalemia Plan: Check lab. OK to DC if lab OK. Matt Ahuja MD May 11, 2017 10:06
[2017-05-11] MEDS ORDERED: guaiFENesin ER PO (10:22)
[2017-05-11] MEDS ORDERED: LISI-519 PO (10:22)
[2017-05-11] MEDS ORDERED: METO50TA PO (10:22)
[2017-05-11] MEDS ORDERED: FURO1TAB62 PO (10:22)
[2017-05-11] MEDS ORDERED: SYMB160A INH (10:22)
[2017-05-11] MEDS ORDERED: XARE20TA PO (10:22)
[2017-05-11] MEDS ORDERED: PRED10PA2 PO (10:22)
[2017-05-11] MEDS ORDERED: ALBUAER3 INH (10:22)
[2017-05-11] MEDS ORDERED: PANT40TA3 PO (10:22)
[2017-05-11] MEDS ORDERED: IPRASOL INH (10:22)
[2017-05-11] MEDS ORDERED: NEBULIZER1 MI1 (10:22)
[2017-05-11] MEDS ORDERED: LIPI40TA PO (10:22)
[2017-05-11] MEDS ORDERED: POTA20TA5 PO (10:22)
[2017-05-11] MEDS ORDERED: LEVA750T9 PO (10:22)
[2017-05-11] MEDS ORDERED: CARD180C5 PO (10:26)
--- NOTE | 2017-05-11 10:28 | HHI.PR ---
Subjective Remarks Patient is 71-year-old female. Who presented to the emergency department with a history of congestive heart failure, atrial fibrillation, cerebrovascular accident, diabetes mellitus, hypertension, hyperlipidemia, and bovine mitral valve replacement presents to emergency room for worsening shortness of breath and productive cough of at least a week. The patient does not speak any Palestinian her daughter is at bedside and speaks fluent Palestinian and is able to translate. Patient denies any fever or chills or any nausea or vomiting denies any abdominal pain or changes in her bowel habits habits denies any dysuria has had a cough that's been productive of greenish sputum had recently been taken off her water pill by her lung doctor because she was doing well. Denies any tobacco does not have oxygen at home is followed by Dr. Gregg Rivas and Dr. Diaz Patient is in A. fib with RVR will be admitted to [facility] on a Cardizem drip will be given steroids would be given antibiotics will be given breathing treatments and duo nebs will consult cardiology and pulmonary. 05-10 NOTE DID NOT SAVE FOR 05-10 WAS TRANSITIONED OFF CARDIZEM DRIP BY CARDIO STILL SOME COUGHING MEDS BEING ADJUSTED 05-11 DW RN AND PT FEELING BETTER DW CARDIO DW PATIENT AND FAMILY WITH PATIENT ACCESS ASSOCIATE SEE BY PULMONARY- SWITCH TO PO STEROIDS AND PO ANTIBIOTICS DC TO HOME TODAY Objective Vitals Vital Signs Date Time Temp Pulse Resp B/P (MAP) Pulse Ox O2 Delivery O2 Flow Rate FiO2 05/11/17 07:58 97.8 81 16 123/78 (93) 91 05/11/17 07:54 93 05/11/17 06:00 79 05/11/17 05:00 96 05/11/17 04:00 81 05/11/17 03:00 80 05/11/17 03:00 97.5 72 18 128/69 (88) 94 05/11/17 02:00 105 05/11/17 01:00 80 05/11/17 00:00 99 05/10/17 23:30 97.5 101 18 119/72 (88) 98 05/10/17 23:00 101 05/10/17 22:00 112 05/10/17 21:00 108 05/10/17 20:24 96 21 05/10/17 20:00 98 05/10/17 20:00 97.2 95 18 147/69 (95) 95 05/10/17 19:00 88 05/10/17 18:00 89 05/10/17 17:00 98 05/10/17 16:00 97.8 90 20 105/63 (77) 97 05/10/17 16:00 90 05/10/17 15:00 103 05/10/17 14:00 96 05/10/17 13:00 92 05/10/17 12:00 80 05/10/17 11:00 80 05/10/17 11:00 97.0 86 20 106/65 (79) 93 05/10/17 10:42 88 117/71 I/O 05/10/17 05/10/17 05/10/17 05/11/17 05/11/17 05/11/17 06:59 14:59 22:59 06:59 14:59 22:59 Intake Total 285 ml 213 ml 285 ml 720 ml Output Total 450 ml Balance 285 ml 213 ml 285 ml 270 ml Intake Oral 240 ml 240 ml 720 ml IV Total 45 ml 213 ml 45 ml Output Urine Total 450 ml # Voids 3 1 # Bowel Movements 0 Result Diagram: 05/10/17 0327 05/10/17 0327 Other Results Laboratory Tests Test 05/09/17 14:30 05/09/17 15:00 05/09/17 16:00 05/09/17 20:15 White Blood Count 8.5 TH/MM3 Red Blood Count 4.24 MIL/MM3 Hemoglobin 11.6 GM/DL Hematocrit 35.9 % Mean Corpuscular Volume 84.6 FL Mean Corpuscular Hemoglobin 27.4 PG Mean Corpuscular Hemoglobin Concent 32.4 % Red Cell Distribution Width 14.6 % Platelet Count 279 TH/MM3 Mean Platelet Volume 7.2 FL Neutrophils (%) (Auto) 73.9 % Lymphocytes (%) (Auto) 14.8 % Monocytes (%) (Auto) 10.1 % Eosinophils (%) (Auto) 0.7 % Basophils (%) (Auto) 0.5 % Neutrophils # (Auto) 6.3 TH/MM3 Lymphocytes # (Auto) 1.3 TH/MM3 Monocytes # (Auto) 0.9 TH/MM3 Eosinophils # (Auto) 0.1 TH/MM3 Basophils # (Auto) 0.0 TH/MM3 CBC Comment DIFF FINAL Differential Comment Prothrombin Time 11.1 SEC Prothromb Time International Ratio 1.0 RATIO Activated Partial Thromboplast Time 34.3 SEC Blood Urea Nitrogen 10 MG/DL Creatinine 0.97 MG/DL Random Glucose 145 MG/DL Total Protein 7.0 GM/DL Albumin 2.9 GM/DL Calcium Level 8.3 MG/DL Magnesium Level 2.1 MG/DL Alkaline Phosphatase 112 U/L Aspartate Amino Transf (AST/SGOT) 84 U/L Alanine Aminotransferase (ALT/SGPT) 67 U/L Total Bilirubin 0.7 MG/DL Sodium Level 135 MEQ/L Potassium Level 3.6 MEQ/L Chloride Level 100 MEQ/L Carbon Dioxide Level 26.4 MEQ/L Anion Gap 9 MEQ/L Estimat Glomerular Filtration Rate 57 ML/MIN Total Creatine Kinase 581 U/L Creatine Kinase MB 3.6 NG/ML Creatine Kinase MB % 0.6 % Troponin I LESS THAN 0.02 NG/ML B-Type Natriuretic Peptide 345 PG/ML 250 PG/ML Thyroid Stimulating Hormone 3rd Gen 0.941 uIU/ML Urine Color LIGHT-YELLOW Urine Turbidity CLEAR Urine pH 6.5 Urine Specific [place] 1.003 Urine Protein TRACE mg/dL Urine Glucose (UA) NEG mg/dL Urine Ketones NEG mg/dL Urine Occult Blood TRACE Urine Nitrite NEG Urine Bilirubin NEG Urine Urobilinogen LESS THAN 2.0 MG/DL Urine Leukocyte Esterase SMALL Urine RBC 1 /hpf Urine WBC 3 /hpf Urine Squamous Epithelial Cells 1 /hpf Urine Transitional Epithelial Cells 1 /hpf Urine Bacteria RARE /hpf Microscopic Urinalysis Comment CULT NOT INDICATED Blood Gas Puncture Site RT RADIAL Blood Gas Patient Temperature 98.6 Blood Gas HCO3 23 mmol/L Blood Gas Base Excess -0.1 mmol/L Blood Gas Oxygen Saturation 94 % Arterial Blood pH 7.46 Arterial Blood Partial Pressure CO2 33 mmHg Arterial Blood Partial Pressure O2 78 mmHG Arterial Blood Oxygen Content 15.0 Vol % Arterial Blood Carboxyhemoglobin 1.3 % Arterial Blood Methemoglobin 0.5 % Blood Gas Hemoglobin 11.3 G/DL Oxygen Delivery Device NASAL CANNULA Blood Gas Liter Flow 2 L/M Test 05/09/17 21:38 05/10/17 03:27 Magnesium Level 2.0 MG/DL 2.2 MG/DL Total Creatine Kinase 478 U/L 411 U/L Creatine Kinase MB 3.0 NG/ML 3.4 NG/ML Creatine Kinase MB % 0.6 % 0.8 % Troponin I LESS THAN 0.02 NG/ML LESS THAN 0.02 NG/ML White Blood Count 11.0 TH/MM3 Red Blood Count 4.07 MIL/MM3 Hemoglobin 10.9 GM/DL Hematocrit 33.9 % Mean Corpuscular Volume 83.4 FL Mean Corpuscular Hemoglobin 26.8 PG Mean Corpuscular Hemoglobin Concent 32.2 % Red Cell Distribution Width 14.7 % Platelet Count 293 TH/MM3 Mean Platelet Volume 7.1 FL Neutrophils (%) (Auto) 91.0 % Lymphocytes (%) (Auto) 5.8 % Monocytes (%) (Auto) 3.0 % Eosinophils (%) (Auto) 0.0 % Basophils (%) (Auto) 0.2 % Neutrophils # (Auto) 10.0 TH/MM3 Lymphocytes # (Auto) 0.6 TH/MM3 Monocytes # (Auto) 0.3 TH/MM3 Eosinophils # (Auto) 0.0 TH/MM3 Basophils # (Auto) 0.0 TH/MM3 CBC Comment DIFF FINAL Differential Comment Blood Urea Nitrogen 15 MG/DL Creatinine 1.20 MG/DL Random Glucose 174 MG/DL Total Protein 6.8 GM/DL Albumin 2.8 GM/DL Calcium Level 8.4 MG/DL Phosphorus Level 1.9 MG/DL Alkaline Phosphatase 102 U/L Aspartate Amino Transf (AST/SGOT) 52 U/L Alanine Aminotransferase (ALT/SGPT) 58 U/L Total Bilirubin 0.9 MG/DL Sodium Level 138 MEQ/L Potassium Level 3.3 MEQ/L Chloride Level 100 MEQ/L Carbon Dioxide Level 26.6 MEQ/L Anion Gap 11 MEQ/L Estimat Glomerular Filtration Rate 45 ML/MIN Hemoglobin A1c 7.0 % Free Thyroxine 1.65 NG/DL Thyroid Stimulating Hormone 3rd Gen 0.409 uIU/ML Imaging Last Impressions Chest X-Ray 05/10/17 0000 Signed Impressions: Service Date/Time: Wednesday, May 10, 2017 21:20 - CONCLUSION: Overall improvement in the aeration of the lungs. Lila Garcia MD Objective Remarks GENERAL: This is a well-nourished, well-developed patient, in no apparent distress. SKIN: No rashes, ecchymoses or lesions. Cool and dry. HEAD: Atraumatic. Normocephalic. No temporal or scalp tenderness. EYES: Pupils equal round and reactive. Extraocular motions intact. No scleral icterus. No injection or drainage. ENT: Nose without bleeding, purulent drainage or septal hematoma. Throat without erythema, tonsillar hypertrophy or exudate. Uvula midline. Airway patent. Tongue is midline NECK: Trachea midline. No JVD or lymphadenopathy. Supple, nontender, no meningeal signs. CARDIOVASCULAR: IRRegular rate and rhythm without murmurs, gallops, or rubs. S1 and S2 no S3 or S4 RESPIRATORY: Decreased breath sounds bilaterally. Breath sounds equal bilaterally. No wheezes, rales, or rhonchi. GASTROINTESTINAL: Abdomen soft, non-tender, nondistended. No hepato-splenomegaly , or palpable masses. No guarding. MUSCULOSKELETAL: Extremities without clubbing, cyanosis, or edema. No joint tenderness, effusion, or edema noted. No calf tenderness. Negative Homans sign bilaterally. Right knee old surgical scar left leg surgical scar NEUROLOGICAL: Awake and alert. Cranial nerves II through XII intact. Motor and sensory grossly within normal limits. Five out of 5 muscle strength in all muscle groups. Normal speech. Insight and judgment appears to be good per communication with her daughter mood and behavior appears appropriate Medications and IVs Current Medications Sodium Chloride (NS Flush) 2 ml UNSCH PRN IVF FLUSH AFTER USING IV ACCESS Last administered on 05/09/17 16:02; Start 05/09/17 at 14:30; Stop 05/09/17 at 18 :46; Status DC Methylprednisolone Sodium Succinate (SoluMEDROL INJ) 125 mg ONCE ONCE IV PUSH Last administered on 05/09/17 15:07; Start 05/09/17 at 14:30; Stop 05/09/17 at 14:31; Status DC Albuterol/ Ipratropium (Duoneb Neb) 1 ampule Q15M INH Last administered on 14:33; Start 05/09/17 at 14:30; Stop 05/09/17 at 14:46; Status DC Diltiazem HCl (Cardizem Inj) 20 mg ONCE ONCE IV Last administered on 16:02; Start 05/09/17 at 15:45; Stop 05/09/17 at 15:46; Status DC Diltiazem HCl (Cardizem) 90 mg ONCE ONCE PO Last administered on 05/09/17 16 :02; Start 05/09/17 at 15:45; Stop 05/09/17 at 15:46; Status DC Levofloxacin (Levaquin) 750 mg ONCE ONCE PO Last administered on 05/09/17 16 :29; Start 05/09/17 at 16:30; Stop 05/09/17 at 16:31; Status DC Furosemide (Lasix Inj) 40 mg ONCE ONCE IV PUSH Last administered on 16:29; Start 05/09/17 at 16:30; Stop 05/09/17 at 16:31; Status DC Diltiazem HCl 125 mg/Sodium Chloride 125 ml @ 5 mls/hr TITRATE PRN IV Tachycardia Last administered on 05/09/17 17:51; Start 05/09/17 at 17:15; Stop 05/09/17 at 18:46; Status DC Atorvastatin Calcium (Lipitor) 40 mg HS PO Last administered on 05/10/17 21: 41; Start 05/09/17 at 21:00 Lisinopril (Prinivil) 5 mg BID PO Last administered on 05/11/17 08:23; Start 05/09/17 at 21:00 Metoprolol Tartrate (Lopressor) 50 mg BID PO Last administered on 05/11/17 08 :24; Start 05/09/17 at 21:00 Rivaroxaban (Xarelto) 20 mg DAILY PO Last administered on 05/11/17 08:23; Start 05/09/17 at 18:45 Dextrose (D50w (Vial) Inj) 50 ml UNSCH PRN IV PUSH HYPOGLYCEMIA-SEE COMMENTS; Start 05/09/17 at 18:45 Glucagon (Glucagon Inj) 1 mg UNSCH PRN OTHER HYPOGLYCEMIA-SEE COMMENTS; Start 05/09/17 at 18:45 Insulin Aspart (NovoLOG SUPPLEMENTAL SCALE) 1 ACHS SLIDING SCALE SQ Last administered on 05/11/17 08:20; Start 05/09/17 at 21:00 Sodium Chloride (NS Flush) 2 ml BID IV FLUSH ; Start 05/09/17 at 21:00; Stop 05/09/17 at 21:00; Status DC Sodium Chloride (NS Flush) 2 ml UNSCH PRN IV FLUSH FLUSH AFTER USING IV ACCESS ; Start 05/09/17 at 18:45; Stop 05/09/17 at 18:46; Status DC Albuterol/ Ipratropium (Duoneb Neb) 1 ampule Q4HR NEB INH Last administered on 05/11/17 07:52; Start 05/09/17 at 20:00 Budesonide/ Formoterol Fumarate (Symbicort 160-4.5 Inh) 2 puff Q12HR INH Last administered on 05/11/17 08:26; Start 05/09/17 at 21:00 Methylprednisolone Sodium Succinate (SoluMEDROL INJ) 60 mg Q6H IV PUSH Last administered on 05/11/17 08:22; Start 05/09/17 at 21:00 Levofloxacin/ Dextrose 150 ml @ 100 mls/hr Q24H IV Last administered on 13:12; Start 05/10/17 at 15:00 Sodium Chloride (NS Flush) 2 ml UNSCH PRN IV FLUSH FLUSH AFTER USING IV ACCESS ; Start 05/09/17 at 18:45; Stop 05/09/17 at 18:46; Status DC Sodium Chloride (NS Flush) 2 ml BID IV FLUSH ; Start 05/09/17 at 21:00; Stop 05/09/17 at 21:00; Status DC Diltiazem HCl 125 mg/Sodium Chloride 125 ml @ 5 mls/hr TITRATE PRN IV Tachycardia Last administered on 05/10/17 10:42; Start 05/09/17 at 18:45 Sodium Chloride (NS Flush) 2 ml UNSCH PRN IV FLUSH FLUSH AFTER USING IV ACCESS ; Start 05/09/17 at 18:45 Sodium Chloride (NS Flush) 2 ml BID IV FLUSH Last administered on 05/11/17 08 :22; Start 05/09/17 at 21:00 Acetaminophen (Tylenol) 650 mg Q4H PRN PO TEMP > 100.4; Start 05/09/17 at 18: 45 Ondansetron HCl (Zofran Inj) 4 mg Q6H PRN IVP NAUSEA OR VOMITING; Start at 18:45 Prochlorperazine (Compazine Supp) 25 mg Q12H PRN RECTAL NAUSEA OR VOMITING; Start 05/09/17 at 18:45 Acetaminophen (Tylenol) 650 mg Q6H PRN PO PAIN SCALE 1 TO 2; Start 05/09/17 at 18:45 Oxycodone/ Acetaminophen (Percocet 5-325 Mg) 1 tab Q6H PRN PO PAIN SCALE 3 TO 5 Last administered on 05/10/17 23:32; Start 05/09/17 at 18:45 Oxycodone/ Acetaminophen (Percocet 10-325 Mg) 1 tab Q6H PRN PO PAIN SCALE 6 TO 10; Start 05/09/17 at 18:45 Morphine Sulfate (Morphine Inj) 2 mg Q3H PRN IV PUSH Pain 3-5; if unable to take PO Last administered on 05/10/17 20:26; Start 05/09/17 at 18:45 Morphine Sulfate (Morphine Inj) 4 mg Q3H PRN IV PUSH Pain 6-10;if unable to take PO; Start 05/09/17 at 18:45 Naloxone HCl (Narcan Inj) 0.4 mg UNSCH PRN IV PUSH SEE LABEL COMMENTS; Start 05/09/17 at 18:45 Senna/Docusate Sodium (Diana-Colace) 1 tab BID PO Last administered on 08:24; Start 05/09/17 at 21:00 Magnesium Hydroxide (Milk Of Magnesia Liq) 30 ml Q12H PRN PO Mild constipation ; Start 05/09/17 at 18:45 Sennosides (Senokot) 17.2 mg Q12H PRN PO Moderate constipation; Start at 18:45 Bisacodyl (Dulcolax Supp) 10 mg DAILY PRN RECTAL SEVERE CONSITIPATION; Start 05/09/17 at 18:45 Lactulose (Lactulose Liq) 30 ml DAILY PRN PO SEVERE CONSITIPATION; Start 05/09 at 18:45 Furosemide (Lasix Inj) 20 mg DAILY IV PUSH Last administered on 05/11/17 08: 25; Start 05/10/17 at 09:00 Guaifenesin (Mucinex Er) 600 mg BID PO Last administered on 05/11/17 08:24; Start 05/09/17 at 21:00 Pantoprazole Sodium (Protonix) 40 mg Q12HR PO Last administered on 05/11/17 09:12; Start 05/09/17 at 21:00 Potassium Chloride (KCl) 40 meq ONCE ONCE PO Last administered on 10/17/17at 10:58; Start 05/10/17 at 10:00; Stop 05/10/17 at 10:01; Status DC Potassium Chloride (KCl) 20 meq DAILY PO Last administered on 05/11/17 08:23 ; Start 05/10/17 at 10:00 Potassium Chloride (KCl) 40 meq ONCE ONCE PO ; Start 05/10/17 at 10:45; Stop 05/10/17 at 11:22; Status DC Potassium Chloride (KCl) 20 meq Q12HR PO ; Start 05/10/17 at 21:00; Stop 05/10 at 21:00; Status DC Diltiazem HCl (Cardizem) 60 mg Q8HR PO ; Start 05/10/17 at 11:00; Stop at 11:22; Status DC Potassium Chloride (KCl) 40 meq ONCE ONCE PO Last administered on 05/10/17 13:13; Start 05/10/17 at 13:00; Stop 05/10/17 at 13:01; Status DC Potassium Chloride (KCl) 20 meq Q12HR PO Last administered on 05/11/17 09:12 ; Start 05/10/17 at 21:00 Diltiazem HCl (Cardizem) 60 mg Q8HR PO Last administered on 05/11/17 06:16; Start 05/10/17 at 13:00; Stop 05/11/17 at 10:02; Status DC Diltiazem HCl (Cardizem Cd) 180 mg DAILY PO ; Start 05/11/17 at 10:15; Status UNV Urinary Catheter: No Vascular Central Line Catheter: No A/P Problem List: (1) Hx of mitral valve replacement with tissue graft ICD Code: Z95.4 - Hx of mitral valve replacement with tissue graft Status: Acute (2) Hx of coronary artery disease ICD Code: Z86.79 - Hx of coronary artery disease Status: Acute (3) Anticoagulated ICD Code: Z79.01 - Anticoagulated Status: Acute (4) CVA (cerebral vascular accident) ICD Code: I63.9 - Cerebral infarction, unspecified (5) Hypertension ICD Code: I10 - Essential (primary) hypertension (6) Respiratory insufficiency ICD Code: R06.89 - Other abnormalities of breathing (7) Hyperlipidemia ICD Code: E78.5 - Hyperlipidemia, unspecified (8) Diabetes mellitus ICD Code: E11.9 - Type 2 diabetes mellitus without complications (9) Atrial fibrillation ICD Code: I48.91 - Unspecified atrial fibrillation (10) COPD (chronic obstructive pulmonary disease) ICD Code: J44.9 - Chronic obstructive pulmonary disease, unspecified (11) History of chronic atrial fibrillation ICD Code: I48.2 - History of chronic atrial fibrillation Status: Acute Assessment and Plan Atrial fibrillation with rapid ventricular response continue on Cardizem drip continue on home medications continue on Xarelto- OFF CARDIZEM DRIP NOW Consult cardiology COPD possible exacerbation versus bronchitis will continue on DuoNeb's continue on Levaquin continue on Mucinex continue on incentive spirometry continue on Solu-Medrol- SWITCH TO PO MEDS Diabetes mellitus Accu-Cheks before meals and at bedtime with medium dose sliding scale due to steroids Congestive heart failure mild continue on Lasix 20 mg IV daily- SWITCH TO PO MEDS Chronic anticoagulation on Xarelto History of bovine mitral valve repair stable an echo History of CVA we'll ask physical therapy and occupational therapy to eval and treat Hyperlipidemia continue on statin Hypertension continue on home medications DVT prophylaxis with Xarelto GI prophylaxis with Protonix For any other information please see the chart [facility] PULMONARY NOTE REVIEWED Discharge Planning DC TO HOME TODAY SEE ORDERS AND NEW RX DW Ck Hilton DO May 11, 2017 10:28
--- NOTE | 2017-05-11 10:31 | HHI.DS ---
Discharge Summary Admission Date May 09, 2017 at 18:21 Discharge Date: May 11, 2017 Admitting Diagnosis A fib with RVR (1) Hx of mitral valve replacement with tissue graft ICD Code: Z95.4 - Hx of mitral valve replacement with tissue graft Diagnosis: Secondary Status: Acute (2) Hx of coronary artery disease ICD Code: Z86.79 - Hx of coronary artery disease Diagnosis: Secondary Status: Acute (3) Anticoagulated ICD Code: Z79.01 - Anticoagulated Diagnosis: Principal Status: Acute (4) CVA (cerebral vascular accident) ICD Code: I63.9 - Cerebral infarction, unspecified Diagnosis: Secondary (5) Hypertension ICD Code: I10 - Essential (primary) hypertension Diagnosis: Secondary (6) Respiratory insufficiency ICD Code: R06.89 - Other abnormalities of breathing Diagnosis: Principal (7) Hyperlipidemia ICD Code: E78.5 - Hyperlipidemia, unspecified Diagnosis: Secondary (8) Diabetes mellitus ICD Code: E11.9 - Type 2 diabetes mellitus without complications Diagnosis: Secondary (9) Atrial fibrillation ICD Code: I48.91 - Unspecified atrial fibrillation Diagnosis: Principal (10) COPD (chronic obstructive pulmonary disease) ICD Code: J44.9 - Chronic obstructive pulmonary disease, unspecified Diagnosis: Secondary (11) History of chronic atrial fibrillation ICD Code: I48.2 - History of chronic atrial fibrillation Diagnosis: Principal Status: Acute Procedures NONE Brief History - From Admission Patient is 71-year-old female. Who presented to the emergency department with a history of congestive heart failure, atrial fibrillation, cerebrovascular accident, diabetes mellitus, hypertension, hyperlipidemia, and bovine mitral valve replacement presents to emergency room for worsening shortness of breath and productive cough of at least a week. The patient does not speak any [place] her daughter is at bedside and speaks fluent [place] and is able to translate. Patient denies any fever or chills or any nausea or vomiting denies any abdominal pain or changes in her bowel habits habits denies any dysuria has had a cough that's been productive of greenish sputum had recently been taken off her water pill by her lung doctor because she was doing well. Denies any tobacco does not have oxygen at home is followed by Dr. Gregg Rivas and Dr. Diaz Patient is in A. fib with RVR will be admitted to [facility] on a Cardizem drip will be given steroids would be given antibiotics will be given breathing treatments and ethan peter will consult cardiology and pulmonary. CBC/BMP: 05/10/17 0327 05/10/17 0327 Significant Findings Laboratory Tests Test 05/09/17 14:30 05/09/17 15:00 05/09/17 16:00 05/09/17 20:15 Neutrophils (%) (Auto) 73.9 % (16.0-70.0) Monocytes (%) (Auto) 10.1 % (0.0-8.0) Activated Partial Thromboplast Time 34.3 SEC (24.3-30.1) Random Glucose 145 MG/DL (74-106) Albumin 2.9 GM/DL (3.4-5.0) Calcium Level 8.3 MG/DL (8.5-10.1) Aspartate Amino Transf (AST/SGOT) 84 U/L (15-37) Alanine Aminotransferase (ALT/SGPT) 67 U/L (10-53) Sodium Level 135 MEQ/L (136-145) Estimat Glomerular Filtration Rate 57 ML/MIN (>89) Total Creatine Kinase 581 U/L (26-192) Troponin I LESS THAN 0.02 NG/ML B-Type Natriuretic Peptide 345 PG/ML (0-100) 250 PG/ML (0-100) Urine Occult Blood TRACE (NEG) Urine Leukocyte Esterase SMALL (NEG) Urine Bacteria RARE /hpf (NONE) Arterial Blood pH 7.46 (7.380-7.420) Arterial Blood Partial Pressure CO2 33 mmHg (38-42) Blood Gas Hemoglobin 11.3 G/DL (12.0-16.0) Test 05/09/17 21:38 05/10/17 03:27 Total Creatine Kinase 478 U/L (26-192) 411 U/L (26-192) Troponin I LESS THAN 0.02 NG/ML LESS THAN 0.02 NG/ML Hemoglobin 10.9 GM/DL (11.6-15.3) Hematocrit 33.9 % (35.0-46.0) Mean Corpuscular Hemoglobin 26.8 PG (27.0-34.0) Neutrophils (%) (Auto) 91.0 % (16.0-70.0) Lymphocytes (%) (Auto) 5.8 % (9.0-44.0) Neutrophils # (Auto) 10.0 TH/MM3 (1.8-7.7) Lymphocytes # (Auto) 0.6 TH/MM3 (1.0-4.8) Creatinine 1.20 MG/DL (0.50-1.00) Random Glucose 174 MG/DL (74-106) Albumin 2.8 GM/DL (3.4-5.0) Calcium Level 8.4 MG/DL (8.5-10.1) Phosphorus Level 1.9 MG/DL (2.5-4.9) Aspartate Amino Transf (AST/SGOT) 52 U/L (15-37) Alanine Aminotransferase (ALT/SGPT) 58 U/L (10-53) Potassium Level 3.3 MEQ/L (3.5-5.1) Estimat Glomerular Filtration Rate 45 ML/MIN (>89) Hemoglobin A1c 7.0 % (4.3-6.0) Free Thyroxine 1.65 NG/DL (0.76-1.46) Imaging Last Impressions Chest X-Ray 05/10/17 0000 Signed Impressions: Service Date/Time: Wednesday, May 10, 2017 21:20 - CONCLUSION: Overall improvement in the aeration of the lungs. Lila Garcia MD PE at Discharge GENERAL: This is a well-nourished, well-developed patient, in no apparent distress. SKIN: No rashes, ecchymoses or lesions. Cool and dry. HEAD: Atraumatic. Normocephalic. No temporal or scalp tenderness. EYES: Pupils equal round and reactive. Extraocular motions intact. No scleral icterus. No injection or drainage. ENT: Nose without bleeding, purulent drainage or septal hematoma. Throat without erythema, tonsillar hypertrophy or exudate. Uvula midline. Airway patent. Tongue is midline NECK: Trachea midline. No JVD or lymphadenopathy. Supple, nontender, no meningeal signs. CARDIOVASCULAR: IRRegular rate and rhythm without murmurs, gallops, or rubs. S1 and S2 no S3 or S4 RESPIRATORY: Decreased breath sounds bilaterally. Breath sounds equal bilaterally. No wheezes, rales, or rhonchi. GASTROINTESTINAL: Abdomen soft, non-tender, nondistended. No hepato-splenomegaly , or palpable masses. No guarding. MUSCULOSKELETAL: Extremities without clubbing, cyanosis, or edema. No joint tenderness, effusion, or edema noted. No calf tenderness. Negative Homans sign bilaterally. Right knee old surgical scar left leg surgical scar NEUROLOGICAL: Awake and alert. Cranial nerves II through XII intact. Motor and sensory grossly within normal limits. Five out of 5 muscle strength in all muscle groups. Normal speech. Insight and judgment appears to be good per communication with her daughter mood and behavior appears appropriate Hospital Course Patient is 71-year-old female. Who presented to the emergency department with a history of congestive heart failure, atrial fibrillation, cerebrovascular accident, diabetes mellitus, hypertension, hyperlipidemia, and bovine mitral valve replacement presents to emergency room for worsening shortness of breath and productive cough of at least a week. The patient does not speak any [place] her daughter is at bedside and speaks fluent [place] and is able to translate. Patient denies any fever or chills or any nausea or vomiting denies any abdominal pain or changes in her bowel habits habits denies any dysuria has had a cough that's been productive of greenish sputum had recently been taken off her water pill by her lung doctor because she was doing well. Denies any tobacco does not have oxygen at home is followed by Dr. Gregg Rivas and Dr. Diaz Patient is in A. fib with RVR will be admitted to [facility] on a Cardizem drip will be given steroids would be given antibiotics will be given breathing treatments and duo nebs will consult cardiology and pulmonary. 05-10 NOTE DID NOT SAVE FOR 05-10 WAS TRANSITIONED OFF CARDIZEM DRIP BY CARDIO STILL SOME COUGHING MEDS BEING ADJUSTED 05-11 DW RN AND PT FEELING BETTER DW CARDIO DW PATIENT AND FAMILY WITH WATER COMMISSIONER SEE BY PULMONARY- SWITCH TO PO STEROIDS AND PO ANTIBIOTICS DC TO HOME TODAY MEDICATIONS ADJUSTED BY DR WEBB AND MYSELF SEEN BY PULMONARY CAN DC TO HOME TODAY Pt Condition on Discharge: Good Discharge Disposition: Discharge Home Discharge Time: > 30 minutes Discharge Instructions DIET: Follow Instructions for: Heart Healthy Diet, Diabetic Diet Activities you can perform: Regular-No Restrictions Follow up Referrals: Cardiology - 2 Weeks with Dorothy Diaz MD PCP Follow-up - 1 Week with Yonas Escobedo MD New Medications: Furosemide (Lasix) 20 Mg Tab 20 MG PO DAILY for Prevent Heart Failure, #30 TAB 0 Refills Levofloxacin (Levaquin) 750 Mg Tablet 750 MG PO DAILY for Infection for 6 Days, #6 TAB 0 Refills Nebulizer (Nebulizer) 1 Mis Mis EA .ROUTE DIRECTED for Breathing Treatment, #1 0 Refills Prednisone (48) 10 mg tab Dose Pack (Prednisone (48) 10 mg tab Dose Pack) 10 Mg Dspk 10 MG PO DIRECTED for Inflammation, #1 DSPK 0 Refills TAKE WITH FOOD DIRECTED Budesonide-Formoterol Inh (Symbicort Inh) 160-4.5 Mcg/Act Aero 2 PUFF INH Q12HR for Breathing Treatment, #1 INHALER Diltiazem CD 24 HR (Cardizem CD 24 HR) 180 Mg Caper 180 MG PO DAILY for Regulate Heart Beat, #60 CAP Ipratropium-Albuterol Neb (Duoneb) 0.5-2.5 Mg/3 Ml Neb 1 AMPULE INH Q4HR NEB for Breathing Treatment, #180 ML Pantoprazole (Pantoprazole) 40 Mg Tab 40 MG PO Q12HR for Heartburn Management, #30 TAB Potassium Chloride Microencaps (Potassium Chloride Microencaps) 20 Meq Tab 20 MEQ PO DAILY for ZE, #30 TAB [guaiFENesin ER] () 600 MG TABCR 600 MG PO BID for Cough, #60 Continued Medications: Albuterol 8.5 GM Inh (Proair Hfa 8.5 GM Inh) 90 Mcg/Act Aer 1 PUFF INH Q4H PRN for SHORTNESS OF BREATH, #1 INHALER 0 Refills (This prescription has been renewed) 108 mcg/actuation Atorvastatin (Lipitor) 40 Mg Tab 40 MG PO HS for Cholesterol Management, #30 TAB 0 Refills (This prescription has been renewed) Lisinopril (Lisinopril) 5 Mg Tab 5 MG PO BID for Blood Pressure Management, #60 TAB 0 Refills (This prescription has been renewed) Metformin (Metformin) 500 Mg Tab 500 MG PO BIDPC for Blood Sugar Management, #60 TAB 0 Refills Metoprolol Tartrate (Metoprolol Tartrate) 50 Mg Tab 50 MG PO BID for Regulate Heart Beat, #60 TAB 0 Refills (This prescription has been renewed) Rivaroxaban (Xarelto) 20 Mg Tab 20 MG PO DAILY for Blood Clot Prevention, #60 TAB 0 Refills (This prescription has been renewed) Ck Eaton DO May 11, 2017 10:30
[2017-05-11] MEDS ORDERED: DILTIAZEM-CD 180 MG CAP ER PO SCH (11:00)
[2017-05-11 13:55] LABS: AUTOMATED NEUTROPHIL # 21.8 TH/MM3 (1.8-7.7); BASOPHIL % 0.1 % (0.0-2.0); HEMATOCRIT 34.6 % (35.0-46.0); HEMO FLAGS DIFF FINAL; LYMPH % 2.4 % (9.0-44.0); LYMPHOCYTE # 0.5 TH/MM3 (1.0-4.8); MEAN CELL VOLUME 84.3 FL (80.0-100.0); MEAN CORPUSCULAR HEMOGLOBIN 27.3 PG (27.0-34.0); MEAN CORPUSCULAR HGB CONC 32.4 % (32.0-36.0); MONO % 2.4 % (0.0-8.0); NEUT % 95.1 % (16.0-70.0); PLATELET COUNT 366 TH/MM3 (150-450); RED BLOOD COUNT 4.11 MIL/MM3 (4.00-5.30); RED CELL DISTRIBUTION WIDTH 14.9 % (11.6-17.2); WHITE BLOOD COUNT 22.9 TH/MM3 (4.0-11.0)
[2017-05-11 14:22] LABS: ALKALINE PHOSPHATASE 96 U/L (45-117); ALT (GPT) 54 U/L (10-53); ANION GAP 10 MEQ/L (5-15); AST (GOT) 32 U/L (15-37); BICARBONATE 24.7 MEQ/L (21.0-32.0); BLOOD UREA NITROGEN 20 MG/DL (7-18); CHLORIDE 94 MEQ/L (98-107); GLOMERULAR FILTRATION RATE 53 ML/MIN (>89); MAGNESIUM 2.1 MG/DL (1.5-2.5); SODIUM (NA) 129 MEQ/L (136-145); TOTAL BILIRUBIN ADULT 0.6 MG/DL (0.2-1.0)
[2017-05-11] MEDS: LEVOFLOXACIN 750 MG PREMIX INJ 150 ML IV SCH (15:44)
--- NOTE | 2017-05-11 15:52 | PQ ---
Physician Query Response Document PATIENT: DANIA VELEZ : 1945 ADMIT DATE: 05/09/2017 6:21 PM DISCH DATE: RESPONDING PROVIDER #: GRETCHEN QUERY TEXT: CHF Acuity and Type Congestive Heart Failure is documented in the Medical Record. Please document the TYPE and ACUITY (in cludes probable or suspected) Such as: Type: -- Systolic -- Diastolic -- Combined -- Other, please specify Acuity: -- Acute -- Chronic -- Acute on chronic -- Other, please specify The patient's Clinical Indicators include: PER H Congestive heart failure mild continue on Lasix 20 mg IV daily 05/10/17 ECHO SHOWS EF=45-50% 05/09/17 [id number] 05/09/17 CHEST X RAY SHOWS MILD BASILAR OPACITIES LIKLEY PLEURAL EFFUSIONS WITH ATELECTASIS Query created by: Angie Monique on 05/11/2017 3:35 PM RESPONSE TEXT: COMBO OF DIASTOLIC AND SYSTOLIC HEART FAILURE PROBABLY CHRONIC Electronically signed by: Ck Eaton 05/11/2017 3:48 PM
--- NOTE | 2017-05-11 17:37 | HHI.PR ---
Subjective Remarks 71 YO [place] female wit Bronchospasm, Wheezing, AF breathing better less sob no fever or chills No CP Objective Vital Signs Vital Signs Date Time Temp Pulse Resp B/P (MAP) Pulse Ox O2 Delivery O2 Flow Rate FiO2 05/11/17 15:54 72 05/11/17 15:42 97.5 73 16 90/53 (65) 97 05/11/17 14:00 67 05/11/17 13:00 62 05/11/17 12:00 62 05/11/17 11:30 97.7 67 16 93/60 (71) 96 05/11/17 11:00 72 05/11/17 10:00 90 05/11/17 09:00 92 05/11/17 08:00 76 05/11/17 07:58 97.8 81 16 123/78 (93) 91 05/11/17 07:54 93 05/11/17 07:30 87 05/11/17 06:00 79 05/11/17 05:00 96 05/11/17 04:00 81 05/11/17 03:00 80 05/11/17 03:00 97.5 72 18 128/69 (88) 94 05/11/17 02:00 105 05/11/17 01:00 80 05/11/17 00:00 99 05/10/17 23:30 97.5 101 18 119/72 (88) 98 05/10/17 23:00 101 05/10/17 22:00 112 05/10/17 21:00 108 05/10/17 20:24 96 21 05/10/17 20:00 98 05/10/17 20:00 97.2 95 18 147/69 (95) 95 05/10/17 19:00 88 05/10/17 18:00 89 I/O 05/10/17 05/10/17 05/10/17 05/11/17 05/11/17 05/11/17 07:00 15:00 23:00 07:00 15:00 23:00 Intake Total 285 ml 213 ml 285 ml 720 ml Output Total 450 ml Balance 285 ml 213 ml 285 ml 270 ml Intake Oral 240 ml 240 ml 720 ml IV Total 45 ml 213 ml 45 ml Output Urine Total 450 ml # Voids 3 1 # Bowel Movements 0 Result Diagram: 05/11/17 1157 05/11/17 115 Objective Remarks GENERAL: MBMN [place] female, NAD SKIN: Warm and dry. HEAD: Normocephalic. EYES: No scleral icterus. No injection or drainage. NECK: Supple, trachea midline. No JVD or lymphadenopathy. CARDIOVASCULAR: Regular rate and rhythm without murmurs, gallops, or rubs. RESPIRATORY: Breath sounds equal bilaterally. No accessory muscle use. GASTROINTESTINAL: Abdomen soft, non-tender, nondistended. MUSCULOSKELETAL: No cyanosis, or edema. BACK: Nontender without obvious deformity. No CVA tenderness. A/P Assessment and Plan Acute Bronchitis COPD AF CMP H/O TIA PLAN: DC Solumedrol pred 10 mg tid Aerosol nebs Cont Abx Stable on RA Ke Han MD May 11, 2017 17:37
[2017-05-11] MEDS ORDERED: predniSONE 10 MG TAB PO SCH (20:00)
== END 2017-05-11 18:59 | disposition home or self-care (01) | DRG 309 ==
LOC: NEPC 14:04 → NEDA 18:21 → HCPC 20:37 → HCIN 05-10 10:30 → UNDODISIN 05-10 11:15
PROVIDERS: ADMIT Hospitalist; ATTEND Hospitalist
DX: I48.2 Chronic atrial fibrillation (principal); I50.42 Chronic combined systolic (congestive) and diastolic (congestive) heart failure; I11.0 Hypertensive heart disease with heart failure; Z95.3 Presence of xenogenic heart valve; J44.0 Chronic obstructive pulmonary disease with (acute) lower respiratory infection; E78.5 Hyperlipidemia, unspecified; E87.6 Hypokalemia; I25.10 Atherosclerotic heart disease of native coronary artery without angina pectoris; I25.5 Ischemic cardiomyopathy; Z96.651 Presence of right artificial knee joint; E11.9 Type 2 diabetes mellitus without complications; E66.9 Obesity, unspecified; R06.89 Other abnormalities of breathing; J20.9 Acute bronchitis, unspecified; Z79.01 Long term (current) use of anticoagulants; Z95.1 Presence of aortocoronary bypass graft; Z86.73 Personal history of transient ischemic attack (TIA), and cerebral infarction without residual deficits; Z79.84 Long term (current) use of oral hypoglycemic drugs
CPT/HCPCS: 36600; 71010; 80053; 81001; 82550; 82552; 82805; 82948; 83036; 83735; 83880; 84100; 84439; 84443; 84484; 85025; 85610; 85730; 87040; 87804; 93005; 93306; 94150; 94640; 94664; 96365; 96375; J1815; J1940; J1956; J2270; J2930

== ENCOUNTER → 2017-09-13 | Outpatient (CLI) | payer MEDICARE, MEDICAID ==
[~2017-09-13] MED LIST changes: -ACET325 PO; -ALBU1AER INH; +ALBUAER3 INH; -ATOR80TA PO; +CARD180C5 PO; +FURO1TAB62 PO; -GLUCTAB PO; +IPRASOL INH; +LEVA750T9 PO; +LIPI40TA PO; +LISI-519 PO; -LISI5 PO; +METF500T PO; -METO50TA OR; +METO50TA PO; -MOBI15TA PO; +NEBULIZER1 MI1; +PANT40TA3 PO; -PERC7.5T13 PO; -POTA10IN2 PO; +POTA20TA5 PO; +PRED10PA2 PO; +SYMB160A INH; -ZOFR4TAB3 SL; +guaiFENesin ER PO
[2017-09-13 09:02] LABS: ALBUMIN 3.4 GM/DL (3.4-5.0); DIRECT BILIRUBIN ADULT 0.2 MG/DL (0.0-0.2)
[2017-09-13 09:04] LABS: CHOLESTEROL/ HDL RATIO 2.05 RATIO; HDL CHOLESTEROL 65.8 MG/DL (40.0-60.0); INDIRECT BILIRUBIN 0.5 MG/DL (0.0-0.8); TOTAL BILIRUBIN ADULT 0.7 MG/DL (0.2-1.0); TOTAL PROTEIN 6.4 GM/DL (6.4-8.2)
== END ==
LOC: HRSP 08:09
DX: J44.9 Chronic obstructive pulmonary disease, unspecified (principal); I35.1 Nonrheumatic aortic (valve) insufficiency; E11.9 Type 2 diabetes mellitus without complications; E78.00 Pure hypercholesterolemia, unspecified; I34.0 Nonrheumatic mitral (valve) insufficiency
CPT/HCPCS: 36415; 80061; 80076; 94060; 94726; 94729